=== PATIENT | male | born 1940 | race Caucasian/White ===

== ENCOUNTER → 2016-04-13 | Outpatient (CLI) | payer MEDICARE ==
[~2016-04-13] MED LIST: ALLO15TA PO; ASPI325T PO; ATOR1TAB21 PO; CARV25TA PO; FURO20TA2 PO; LEVO50TA5 PO; LOSA100T36 PO; MULT1TAB10 PO; SERT-141 PO; SPIR25TA2 PO
--- NOTE | 2016-04-13 18:28 | REP ---
LEFT HAND, FOUR VIEWS: HISTORY: Injury. There is no acute fracture or dislocation. There is narrowing of the radiocarpal joint space. Chondrocalcinosis is present. A small ossified density is present adjacent to the ulnar styloid process. This may represent an old avulsion fracture fragment, ligamentous or tendon calcification. There is narrowing of the first carpometacarpal, intermediate and distal interphalangeal joint spaces. IMPRESSION: Degenerative change as described above. Signed by Ben Rodriguez MD 04/13/2016 06:35 P
== END ==
LOC: M WUC 17:18
PROVIDERS: ATTEND Physician Assistant
DX: S60.222A Contusion of left hand, initial encounter (principal); X58.XXXA Exposure to other specified factors, initial encounter; Y92.89 Other specified places as the place of occurrence of the external cause; Y93.9 Activity, unspecified; Y99.9 Unspecified external cause status

== ENCOUNTER → 2016-10-24 | Outpatient (REF) | payer MEDICARE ==
[~2016-10-24] MED LIST changes: -SERT-141 PO; +SERT50TA PO
== END ==
LOC: M LAB REF 17:39
PROVIDERS: ATTEND Family Medicine
DX: M10.9 Gout, unspecified (principal)

== ENCOUNTER → 2016-11-09 | Outpatient (REF) | payer MEDICARE ==
[2016-11-09 18:49] LABS: FERRITIN 163 NG/ML (26-388); PERCENT SATURATION 17.2 % (19.7-50.0); TOTAL IRON BINDING CAPACITY 348 UG/DL (250-450)
[2016-11-09 18:50] LABS: FOLATE > 24.0 NG/ML (>5.4); VITAMIN B12 LEVEL 909 PG/ML (247-911)
== END ==
LOC: M LAB REF 17:28
PROVIDERS: ATTEND Internal Medicine Nephrology
DX: D50.9 Iron deficiency anemia, unspecified (principal)

== ENCOUNTER 2016-11-27 08:14 | Outpatient (CLI) | payer MEDICARE ==
[~2016-11-27] VITALS: Ht 175.3 cm; Wt 103.2 kg
[2016-11-27] MEDS ORDERED: IRON SUCROSE 25 MG in NS 50 ML IV ONE (09:00)
[2016-11-27] MEDS ORDERED: IRON SUCROSE 475 MG in NS 250 ML IV ONE (10:00)
== END 2016-11-27 13:30 | disposition home or self-care (01) ==
LOC: M INFU 08:14
PROVIDERS: ATTEND Internal Medicine Nephrology
DX: D50.9 Iron deficiency anemia, unspecified (principal); Z88.8 Allergy status to other drugs, medicaments and biological substances; Z79.899 Other long term (current) drug therapy; Z79.82 Long term (current) use of aspirin
CPT/HCPCS: 96365; J1756

== ENCOUNTER → 2017-01-10 | Outpatient (CLI) | payer MEDICARE ==
--- NOTE | 2017-01-10 15:03 | REP ---
Right knee series: Five views. History: Contusion. Pain after a fall. Findings: There is mild prepatellar soft-tissue swelling. No fracture is seen. There is nonarticular superior and inferior pole patellar spurring at the quadriceps tendon and patellar tendon insertion sites. Vascular calcification is noted. There are surgical clips in the posteromedial soft tissues of the calf. No fracture is seen. No joint space narrowing noted. Impression: Patellar spurring. Prepatellar swelling. No fracture evident. Signed by Butch López MD 01/10/2017 03:18 P
== END ==
LOC: M WUC 13:03
PROVIDERS: ATTEND Physician Assistant
DX: S80.01XA Contusion of right knee, initial encounter (principal); X58.XXXA Exposure to other specified factors, initial encounter; Y92.89 Other specified places as the place of occurrence of the external cause; Y93.89 Activity, other specified; Y99.8 Other external cause status; M25.761 Osteophyte, right knee

== ENCOUNTER 2017-03-17 12:30 | Emergency (ER) | payer MEDICARE | END 2017-03-17 15:46 | disposition home or self-care (01) | LOC: M ED 12:30 | DX: K59.00 Constipation, unspecified (principal); K64.4 Residual hemorrhoidal skin tags; E11.9 Type 2 diabetes mellitus without complications; I50.9 Heart failure, unspecified; I25.2 Old myocardial infarction; N18.6 End stage renal disease; Z79.899 Other long term (current) drug therapy; Z79.82 Long term (current) use of aspirin; Z79.890 Hormone replacement therapy; Z88.8 Allergy status to other drugs, medicaments and biological substances; Z87.891 Personal history of nicotine dependence | CPT/HCPCS: 74000 ==

== ENCOUNTER → 2017-04-26 | Outpatient (REF) | payer MEDICARE ==
[2017-04-26 20:36] LABS: FERRITIN 189 NG/ML (26-388); IRON (FE) 65 UG/DL (65-175); PERCENT SATURATION 20.8 % (19.7-50.0); TOTAL IRON BINDING CAPACITY 313 UG/DL (250-450)
== END ==
LOC: M LAB REF 18:41
DX: D50.9 Iron deficiency anemia, unspecified (principal)
CPT/HCPCS: 83550

== ENCOUNTER 2017-05-04 15:27 | Inpatient (IN) | payer MEDICARE ==
[2017-05-04 16:49] LABS: BASO % 0.6 % (0.0-1.0); EOS # 0.3 10^3/uL (0.0-0.50); EOS % 4.6 % (0.0-3.0); HEMATOCRIT 31.6 % (42.0-52.0); HEMOGLOBIN 10.5 g/dl (14.0-18.0); IMMATURE GRANULOCYTE % 0.2 % (0-3.0); LYMPH # 0.7 10^3/uL (1.5-4.5); LYMPH % 10.4 % (24.0-44.0); MEAN CORPUSCULAR HGB CONC 33.2 g/dl (32.0-36.5); MEAN CORPUSCULAR VOLUME 93.2 fl (80.0-96.0); MONO # 0.9 10^3/uL (0.0-0.8); MONO % 14.3 % (0.0-5.0); NEUTROPHILS # 4.4 10^3/uL (1.8-7.7); NEUTROPHILS % 69.9 % (36.0-66.0); PLATELET COUNT, AUTOMATED 192 10^3/uL (150-450); RED BLOOD COUNT 3.39 10^6/uL (4.30-6.10); WHITE BLOOD COUNT 6.4 10^3/uL (4.0-10.0)
[2017-05-04 17:16] LABS: ANION GAP 11 MEQ/L (8-16); BLOOD UREA NITROGEN 134 MG/DL (7-18); CALCIUM LEVEL 8.8 MG/DL (8.8-10.2); CARBON DIOXIDE LEVEL 28 MEQ/L (21-32); CHLORIDE LEVEL 101 MEQ/L (98-107); CREATININE FOR GFR 3.65 MG/DL (0.70-1.30); GLOMERULAR FILTRATION RATE 17.5 (>42); GLUCOSE, FASTING 109 MG/DL (70-100); POTASSIUM SERUM 3.8 MEQ/L (3.5-5.1); SODIUM LEVEL 140 MEQ/L (136-145)
[2017-05-04] MEDS ORDERED: ANUSOL HC CREAM 30GM PR (19:00)
[2017-05-04] MEDS: ASPIRIN 325 MG TAB PO (21:47)
[2017-05-04] MEDS: ATORVASTATIN 20 MG TAB PO (21:48)
[2017-05-04] MEDS: CARVedilol 3.125 MG TAB PO (21:48)
[2017-05-05 05:04] LABS: HEMATOCRIT 28.9 % (42.0-52.0); HEMOGLOBIN 9.6 g/dl (14.0-18.0); MEAN CORPUSCULAR HEMOGLOBIN 30.8 pg (27.0-33.0); MEAN CORPUSCULAR HGB CONC 33.2 g/dl (32.0-36.5); MEAN CORPUSCULAR VOLUME 92.6 fl (80.0-96.0); PLATELET COUNT, AUTOMATED 168 10^3/uL (150-450); RED BLOOD COUNT 3.12 10^6/uL (4.30-6.10); RED CELL DISTRIBUTION WIDTH 16.9 % (11.5-14.5)
[2017-05-05 05:21] LABS: ALBUMIN 3.3 GM/DL (3.2-5.2); ANION GAP 14 MEQ/L (8-16); BLOOD UREA NITROGEN 136 MG/DL (7-18); CALCIUM LEVEL 8.9 MG/DL (8.8-10.2); CARBON DIOXIDE LEVEL 27 MEQ/L (21-32); CHLORIDE LEVEL 100 MEQ/L (98-107); CREATININE FOR GFR 3.52 MG/DL (0.70-1.30); GLOMERULAR FILTRATION RATE 18.2 (>42); GLUCOSE, FASTING 116 MG/DL (70-100); MAGNESIUM LEVEL 2.9 MG/DL (1.8-2.4); PHOSPHORUS LEVEL 6.6 MG/DL (2.5-4.9); POTASSIUM SERUM 3.7 MEQ/L (3.5-5.1); SODIUM LEVEL 141 MEQ/L (136-145)
[2017-05-05 05:28] LABS: INR 1.54; PROTHROMBIN TIME 18.9 SECONDS (12.4-14.5)
[2017-05-05] MEDS: LEVOTHYROXINE 75MCG TABLET (0.075MG) PO (06:20)
[2017-05-05] MEDS: HEPARIN SOD (PORCINE) 5000 UNITS/ML VIAL SC ×3 (06:21→22:00)
[2017-05-05] MEDS: FEBUXOSTAT 40 MG TABLET (ULORIC) PO (08:54)
[2017-05-05] MEDS: TORSEMIDE 100 MG TAB PO (08:54)
[2017-05-05] MEDS: MULTIVITAMINS/MINERALS THERAP 1 TAB PO (08:55)
[2017-05-05] MEDS: SERTRALINE HCL 50 MG TAB PO (08:55)
[2017-05-05] MEDS: CARVedilol 3.125 MG TAB PO ×2 (08:55→21:07)
[2017-05-05] MEDS ORDERED: SODIUM CHLORIDE 0.9% NASAL GEL 15MG (AYR) (11:00)
[2017-05-05] MEDS: SODIUM CHLORIDE NASAL 0.65% SPRAY BTL (OCEAN) (13:47)
[2017-05-05] MEDS: FUROSEMIDE injection 250 MG in D5W 225 ML IV (14:42)
[2017-05-05] MEDS ORDERED: HEPARIN SOD (PORCINE) 5000 UNITS/ML VIAL As Ordered (15:13)
[2017-05-05] MEDS ORDERED: MIDAZOLAM INJ 2 MG/2 ML VIAL (J2250) As Ordered (16:44)
[2017-05-05] MEDS ORDERED: fentaNYL 100 MCG/2 ML INJECTION (J3010) As Ordered (16:44)
[2017-05-05] MEDS ORDERED: LIDOCAINE 2% INJ 100 MG/5 ML SDV (FOR ANES.) As Ordered (16:44)
[2017-05-05] MEDS ORDERED: PROPOFOL 200 MG/20 ML VIAL As Ordered (16:44)
[2017-05-05] MEDS: BUPIVACAINE HCL 0.5% 30 ML VIAL As Ordered (17:10)
[2017-05-05] MEDS: LIDOCAINE 1% MDV 20ML VIAL As Ordered (17:10)
[2017-05-05] MEDS ORDERED: ONDANSETRON 4MG/2ML VIAL (J2405) IV (17:45)
[2017-05-05 18:08] LABS: IRON (FE) 43 UG/DL (65-175); TOTAL IRON BINDING CAPACITY 330 UG/DL (250-450)
[2017-05-05] MEDS: POTASSIUM CHLORIDE 10 MEQ SR TABLET PO (18:47)
[2017-05-05] MEDS: ASPIRIN 325 MG TAB PO (21:06)
[2017-05-05] MEDS: ATORVASTATIN 20 MG TAB PO (21:07)
[2017-05-06 05:27] LABS: HEMATOCRIT 30.4 % (42.0-52.0); MEAN CORPUSCULAR HEMOGLOBIN 30.5 pg (27.0-33.0); MEAN CORPUSCULAR HGB CONC 32.9 g/dl (32.0-36.5); MEAN CORPUSCULAR VOLUME 92.7 fl (80.0-96.0); PLATELET COUNT, AUTOMATED 174 10^3/uL (150-450); RED BLOOD COUNT 3.28 10^6/uL (4.30-6.10); RED CELL DISTRIBUTION WIDTH 17.1 % (11.5-14.5); WHITE BLOOD COUNT 6.4 10^3/uL (4.0-10.0)
[2017-05-06 05:46] LABS: ALBUMIN 3.5 GM/DL (3.2-5.2); ANION GAP 11 MEQ/L (8-16); BLOOD UREA NITROGEN 129 MG/DL (7-18); CALCIUM LEVEL 8.9 MG/DL (8.8-10.2); CARBON DIOXIDE LEVEL 27 MEQ/L (21-32); CHLORIDE LEVEL 101 MEQ/L (98-107); CREATININE FOR GFR 3.43 MG/DL (0.70-1.30); GLOMERULAR FILTRATION RATE 18.8 (>42); GLUCOSE, FASTING 112 MG/DL (70-100); MAGNESIUM LEVEL 2.8 MG/DL (1.8-2.4); PHOSPHORUS LEVEL 6.5 MG/DL (2.5-4.9); POTASSIUM SERUM 3.8 MEQ/L (3.5-5.1); SODIUM LEVEL 139 MEQ/L (136-145)
[2017-05-06] MEDS: LEVOTHYROXINE 75MCG TABLET (0.075MG) PO (06:35)
[2017-05-06] MEDS: HEPARIN SOD (PORCINE) 5000 UNITS/ML VIAL SC ×3 (06:35→21:46)
[2017-05-06] MEDS ORDERED: HEPARIN SOD (PORCINE) 5000 UNITS/ML VIAL (09:45)
[2017-05-06] MEDS: MULTIVITAMINS/MINERALS THERAP 1 TAB PO (09:46)
[2017-05-06] MEDS: SERTRALINE HCL 50 MG TAB PO (09:46)
[2017-05-06] MEDS: FEBUXOSTAT 40 MG TABLET (ULORIC) PO (09:47)
[2017-05-06] MEDS: CARVedilol 3.125 MG TAB PO ×2 (09:47→21:46)
[2017-05-06] MEDS: FUROSEMIDE injection 250 MG in D5W 225 ML IV (13:24)
[2017-05-06] MEDS: ATORVASTATIN 20 MG TAB PO (21:45)
[2017-05-06] MEDS: ASPIRIN 325 MG TAB PO (21:45)
[2017-05-07 05:22] LABS: HEMOGLOBIN 9.9 g/dl (14.0-18.0); MEAN CORPUSCULAR HEMOGLOBIN 30.8 pg (27.0-33.0); MEAN CORPUSCULAR VOLUME 93.5 fl (80.0-96.0); PLATELET COUNT, AUTOMATED 179 10^3/uL (150-450); RED BLOOD COUNT 3.21 10^6/uL (4.30-6.10); RED CELL DISTRIBUTION WIDTH 17.2 % (11.5-14.5); WHITE BLOOD COUNT 6.7 10^3/uL (4.0-10.0)
[2017-05-07 05:36] LABS: ALBUMIN 3.4 GM/DL (3.2-5.2); ANION GAP 14 MEQ/L (8-16); BLOOD UREA NITROGEN 124 MG/DL (7-18); CALCIUM LEVEL 8.9 MG/DL (8.8-10.2); CARBON DIOXIDE LEVEL 25 MEQ/L (21-32); CHLORIDE LEVEL 102 MEQ/L (98-107); CREATININE FOR GFR 3.43 MG/DL (0.70-1.30); GLOMERULAR FILTRATION RATE 18.8 (>42); GLUCOSE, FASTING 127 MG/DL (70-100); MAGNESIUM LEVEL 2.9 MG/DL (1.8-2.4); PHOSPHORUS LEVEL 6.3 MG/DL (2.5-4.9); POTASSIUM SERUM 3.8 MEQ/L (3.5-5.1); SODIUM LEVEL 141 MEQ/L (136-145)
[2017-05-07] MEDS: FEBUXOSTAT 40 MG TABLET (ULORIC) PO (05:55)
[2017-05-07] MEDS: LEVOTHYROXINE 75MCG TABLET (0.075MG) PO (05:55)
[2017-05-07] MEDS: DOCUSATE SODIUM 100 MG CAP PO (05:55)
[2017-05-07] MEDS: SERTRALINE HCL 50 MG TAB PO (05:56)
[2017-05-07] MEDS: CARVedilol 3.125 MG TAB PO ×2 (05:56→21:20)
[2017-05-07] MEDS: MULTIVITAMINS/MINERALS THERAP 1 TAB PO (05:56)
[2017-05-07] MEDS: HEPARIN SOD (PORCINE) 5000 UNITS/ML VIAL SC ×3 (05:57→21:21)
[2017-05-07] MEDS: CALCITRIOL 0.25 MCG CAP (S0169) PO (08:45)
[2017-05-07] MEDS: HEPARIN 1,000 UNITS/ML 10ML VIAL (FOR RADIOLOGY& DIALYSIS ONLY) IV (11:30)
[2017-05-07 11:48] LABS: HEPATITIS B SURFACE ANTIBODY NEGATIVE (POSITIVE)
[2017-05-07 11:55] LABS: HEPATITIS B SURFACE ANTIGEN NEGATIVE (NEGATIVE)
[2017-05-07 11:56] LABS: HEPATITIS B SURFACE ANTIGEN NEGATIVE (NEGATIVE)
[2017-05-07 12:14] LABS: HEPATITIS B CORE ANTIBODY IGM NEGATIVE (NEGATIVE); HEPATITIS C VIRUS ABY INDEX 0.1 INDEX (<0.8)
[2017-05-07 12:15] LABS: HEPATITIS C VIRUS ABY INDEX 0.1 INDEX (<0.8)
[2017-05-07 12:16] LABS: HEPATITIS B CORE ANTIBODY IGM NEGATIVE (NEGATIVE)
[2017-05-07 12:17] LABS: HEPATITIS A ANTIBODY IGM NEGATIVE (NEGATIVE)
[2017-05-07] MEDS ORDERED: IRON SUCROSE 100MG 5ML VIAL (J1756 PER 1MG) IV (21:00)
[2017-05-07] MEDS: ASPIRIN 325 MG TAB PO (21:20)
[2017-05-07] MEDS: ATORVASTATIN 20 MG TAB PO (21:20)
[2017-05-07 23:23] LABS: ANION GAP 9 MEQ/L (8-16); BLOOD UREA NITROGEN 90 MG/DL (7-18); CARBON DIOXIDE LEVEL 27 MEQ/L (21-32); CHLORIDE LEVEL 104 MEQ/L (98-107); CREATININE FOR GFR 2.71 MG/DL (0.70-1.30); GLOMERULAR FILTRATION RATE 24.6 (>42); GLUCOSE, FASTING 106 MG/DL (70-100); POTASSIUM SERUM 3.8 MEQ/L (3.5-5.1); SODIUM LEVEL 140 MEQ/L (136-145)
[2017-05-08 01:35] LABS: MAGNESIUM LEVEL 2.5 MG/DL (1.8-2.4); PHOSPHORUS LEVEL 4.8 MG/DL (2.5-4.9)
[2017-05-08 05:53] LABS: HEMATOCRIT 29.6 % (42.0-52.0); HEMOGLOBIN 9.7 g/dl (14.0-18.0); MEAN CORPUSCULAR HEMOGLOBIN 30.5 pg (27.0-33.0); MEAN CORPUSCULAR HGB CONC 32.8 g/dl (32.0-36.5); MEAN CORPUSCULAR VOLUME 93.1 fl (80.0-96.0); PLATELET COUNT, AUTOMATED 154 10^3/uL (150-450); RED BLOOD COUNT 3.18 10^6/uL (4.30-6.10); RED CELL DISTRIBUTION WIDTH 17.1 % (11.5-14.5); WHITE BLOOD COUNT 5.6 10^3/uL (4.0-10.0)
[2017-05-08 06:16] LABS: ALBUMIN 3.3 GM/DL (3.2-5.2); ANION GAP 12 MEQ/L (8-16); BLOOD UREA NITROGEN 90 MG/DL (7-18); CALCIUM LEVEL 9.1 MG/DL (8.8-10.2); CARBON DIOXIDE LEVEL 27 MEQ/L (21-32); CHLORIDE LEVEL 101 MEQ/L (98-107); CREATININE FOR GFR 2.73 MG/DL (0.70-1.30); GLOMERULAR FILTRATION RATE 24.4 (>42); GLUCOSE, FASTING 98 MG/DL (70-100); MAGNESIUM LEVEL 2.6 MG/DL (1.8-2.4); PHOSPHORUS LEVEL 4.8 MG/DL (2.5-4.9); POTASSIUM SERUM 3.9 MEQ/L (3.5-5.1); SODIUM LEVEL 140 MEQ/L (136-145)
[2017-05-08] MEDS: FEBUXOSTAT 40 MG TABLET (ULORIC) PO (06:30)
[2017-05-08] MEDS: HEPARIN SOD (PORCINE) 5000 UNITS/ML VIAL SC ×3 (06:31→22:01)
[2017-05-08] MEDS: CARVedilol 3.125 MG TAB PO ×2 (06:31→20:47)
[2017-05-08] MEDS: LEVOTHYROXINE 75MCG TABLET (0.075MG) PO (06:31)
[2017-05-08] MEDS: MULTIVITAMINS/MINERALS THERAP 1 TAB PO (06:31)
[2017-05-08] MEDS: SERTRALINE HCL 50 MG TAB PO (06:31)
[2017-05-08] MEDS: CALCITRIOL 0.25 MCG CAP (S0169) PO (06:32)
[2017-05-08 08:07] LABS: HEPATITIS B CORE ANTIBODY IGG Negative (Negative)
[2017-05-08] MEDS: HEPARIN 1,000 UNITS/ML 10ML VIAL (FOR RADIOLOGY& DIALYSIS ONLY) IV (19:32)
[2017-05-08] MEDS: ASPIRIN 325 MG TAB PO (20:46)
[2017-05-08] MEDS: ATORVASTATIN 20 MG TAB PO (20:47)
[2017-05-09] MEDS: HEPARIN SOD (PORCINE) 5000 UNITS/ML VIAL SC (05:27)
[2017-05-09] MEDS: LEVOTHYROXINE 75MCG TABLET (0.075MG) PO (05:27)
[2017-05-09 05:28] LABS: HEMOGLOBIN 9.8 g/dl (14.0-18.0); MEAN CORPUSCULAR HEMOGLOBIN 30.4 pg (27.0-33.0); MEAN CORPUSCULAR HGB CONC 32.7 g/dl (32.0-36.5); MEAN CORPUSCULAR VOLUME 93.2 fl (80.0-96.0); PLATELET COUNT, AUTOMATED 160 10^3/uL (150-450); RED BLOOD COUNT 3.22 10^6/uL (4.30-6.10); RED CELL DISTRIBUTION WIDTH 17.4 % (11.5-14.5); WHITE BLOOD COUNT 7.7 10^3/uL (4.0-10.0)
[2017-05-09 05:53] LABS: ALBUMIN 3.3 GM/DL (3.2-5.2); ANION GAP 9 MEQ/L (8-16); BLOOD UREA NITROGEN 66 MG/DL (7-18); CALCIUM LEVEL 9.3 MG/DL (8.8-10.2); CARBON DIOXIDE LEVEL 27 MEQ/L (21-32); CHLORIDE LEVEL 103 MEQ/L (98-107); CREATININE FOR GFR 2.53 MG/DL (0.70-1.30); GLOMERULAR FILTRATION RATE 26.6 (>42); GLUCOSE, FASTING 116 MG/DL (70-100); MAGNESIUM LEVEL 2.7 MG/DL (1.8-2.4); PHOSPHORUS LEVEL 3.8 MG/DL (2.5-4.9); SODIUM LEVEL 139 MEQ/L (136-145)
[2017-05-09] MEDS: FEBUXOSTAT 40 MG TABLET (ULORIC) PO (09:23)
[2017-05-09] MEDS: MULTIVITAMINS/MINERALS THERAP 1 TAB PO (09:24)
[2017-05-09] MEDS: CALCITRIOL 0.25 MCG CAP (S0169) PO (09:25)
[2017-05-09] MEDS: SERTRALINE HCL 50 MG TAB PO (09:25)
[2017-05-09] MEDS: CARVedilol 3.125 MG TAB PO (09:25)
== END 2017-05-09 12:38 | disposition home or self-care (01) | DRG 291 ==
LOC: M PCU 05-05 17:30 → M ED 15:27 → M ED INP 19:30 → M PCU 21:31
PROC: 02HV33Z Insertion of Infusion Device into Superior Vena Cava, Percutaneous Approach (ICD-10-PCS; principal; 2017-05-05 16:00)
PROC: 0JH63XZ Insertion of Tunneled Vascular Access Device into Chest Subcutaneous Tissue and Fascia, Percutaneous Approach (ICD-10-PCS; 2017-05-05 16:00)
PROC: 5A1D70Z Performance of Urinary Filtration, Intermittent, Less than 6 Hours Per Day (ICD-10-PCS; 2017-05-05 16:34)
DX: I50.23 Acute on chronic systolic (congestive) heart failure (principal); N18.6 End stage renal disease; N25.81 Secondary hyperparathyroidism of renal origin; I48.91 Unspecified atrial fibrillation; G47.33 Obstructive sleep apnea (adult) (pediatric); I25.10 Atherosclerotic heart disease of native coronary artery without angina pectoris; E03.9 Hypothyroidism, unspecified; Z95.5 Presence of coronary angioplasty implant and graft; Z98.52 Vasectomy status; Z87.891 Personal history of nicotine dependence; Z95.810 Presence of automatic (implantable) cardiac defibrillator; Z79.899 Other long term (current) drug therapy; Z91.048 Other nonmedicinal substance allergy status; Z88.8 Allergy status to other drugs, medicaments and biological substances; I25.2 Old myocardial infarction

== ENCOUNTER → 2017-06-18 | Outpatient (CLI) | payer MEDICARE | LOC: M RAD 13:35 | DX: N18.6 End stage renal disease (principal); R31.9 Hematuria, unspecified | CPT/HCPCS: 74176 ==

== ENCOUNTER → 2017-06-29 | Outpatient (REF) | payer MEDICARE ==
[2017-06-29 17:52] LABS: INR 1.37; PROTHROMBIN TIME 17.2 SECONDS (12.4-14.5)
== END ==
LOC: M LAB REF 16:49
DX: I50.22 Chronic systolic (congestive) heart failure (principal); Z01.818 Encounter for other preprocedural examination; R18.8 Other ascites
CPT/HCPCS: 85610

== ENCOUNTER → 2017-07-02 | Outpatient (CLI) | payer MEDICARE ==
[2017-07-02 11:05] LABS: TYPE AND SCREEN 1
[2017-07-02 13:48] LABS: BF MONONUCLEAR CELL % 74.4 % (0-0); BF POLYMORPHONUCLEAR CELL % 25.6 % (0-0); RBC BODY FLUID 11 10^3/uL (<2); WBC BODY FLUID 441 /uL (0-10)
[2017-07-02 13:49] LABS: SOURCE, BODY FLUID ASCITES
[2017-07-02 13:50] LABS: APPEARANCE, BODY FLUID TURBID (CLEAR); ASCITES FL COLOR AMBER (COLORLESS); BF DIFF IF INDICATED? YES (NO)
[2017-07-02 14:40] LABS: SOURCE, BODY FLUID ALBUMIN ASCITES; SOURCE, BODY FLUID TOT PROTEIN ASCITES; TOTAL PROTEIN, BODY FLUID 3.9 G/DL (NOT ESTABLISHED)
== END ==
LOC: M RADPRO 10:56
DX: I50.22 Chronic systolic (congestive) heart failure (principal); Z99.2 Dependence on renal dialysis; R18.8 Other ascites; Z79.899 Other long term (current) drug therapy; Z88.8 Allergy status to other drugs, medicaments and biological substances; Z91.048 Other nonmedicinal substance allergy status
CPT/HCPCS: 49083

== ENCOUNTER 2017-07-05 11:34 | Day surgery (SDC) | payer MEDICARE ==
[2017-07-05 12:35] LABS: BEDSIDE GLUCOSE 84 MG/DL (83-110)
[2017-07-05] MEDS ORDERED: PROPOFOL 200 MG/20 ML VIAL As Ordered ×6 (12:38→15:15)
[2017-07-05] MEDS ORDERED: MIDAZOLAM INJ 2 MG/2 ML VIAL (J2250) As Ordered ×2 (12:40)
[2017-07-05] MEDS ORDERED: fentaNYL 100 MCG/2 ML INJECTION (J3010) As Ordered ×2 (12:40)
[2017-07-05 12:46] LABS: POTASSIUM SERUM 3.8 MEQ/L (3.5-5.1)
[2017-07-05] MEDS: NS 1,000 ML IV ×2 (13:01)
[2017-07-05] MEDS: ISOVUE-300 61% 50ML VIAL (Q9967) As Ordered ×2 (13:08)
[2017-07-05] MEDS ORDERED: PHENYLephrine HCL 500 MCG/5 ML (100MCG/ML) SYRINGE (J2370) As Ordered ×4 (14:00→14:39)
[2017-07-05] MEDS: BUPIVACAINE HCL 0.5% 30 ML VIAL As Ordered ×2 (14:05)
[2017-07-05] MEDS: LIDOCAINE 1% SDV INJ 30 ML VIAL As Ordered ×2 (14:05)
[2017-07-05] MEDS: HEPARIN SOD (PORCINE) 5000 UNITS/ML VIAL As Ordered ×2 (14:05)
[2017-07-05] MEDS ORDERED: PROPOFOL 500 MG/50 ML VIAL As Ordered ×2 (14:50)
[2017-07-05] MEDS ORDERED: ONDANSETRON 4MG/2ML VIAL (J2405) IV ×2 (16:15)
[2017-07-05] MEDS ORDERED: NS 1,000 ML IV ×2 (16:15)
[2017-07-05 16:31] LABS: BEDSIDE GLUCOSE 93 MG/DL (83-110)
== END 2017-07-05 17:00 | disposition home or self-care (01) ==
LOC: M SDC 17:00
DX: N18.6 End stage renal disease (principal); I25.10 Atherosclerotic heart disease of native coronary artery without angina pectoris; I48.91 Unspecified atrial fibrillation; G47.33 Obstructive sleep apnea (adult) (pediatric); E03.9 Hypothyroidism, unspecified; I50.32 Chronic diastolic (congestive) heart failure; E11.22 Type 2 diabetes mellitus with diabetic chronic kidney disease; C61 Malignant neoplasm of prostate; R94.31 Abnormal electrocardiogram [ECG] [EKG]; R07.9 Chest pain, unspecified; I25.2 Old myocardial infarction; E78.00 Pure hypercholesterolemia, unspecified; M10.9 Gout, unspecified; K59.00 Constipation, unspecified; D50.9 Iron deficiency anemia, unspecified; I95.9 Hypotension, unspecified; M12.9 Arthropathy, unspecified; F41.9 Anxiety disorder, unspecified; F32.9 Major depressive disorder, single episode, unspecified; R06.83 Snoring; R06.02 Shortness of breath; N40.0 Benign prostatic hyperplasia without lower urinary tract symptoms; Z88.8 Allergy status to other drugs, medicaments and biological substances; Z91.048 Other nonmedicinal substance allergy status; Z79.899 Other long term (current) drug therapy; Z79.82 Long term (current) use of aspirin; Z95.810 Presence of automatic (implantable) cardiac defibrillator; Z95.5 Presence of coronary angioplasty implant and graft; Z96.1 Presence of intraocular lens; Z87.891 Personal history of nicotine dependence
CPT/HCPCS: 36821

== ENCOUNTER → 2017-07-25 | Outpatient (CLI) | payer MEDICARE ==
[~2017-07-25] MED LIST changes: -ALLO15TA PO; -ASPI325T PO; -ATOR1TAB21 PO; -CARV25TA PO; -FURO20TA2 PO; +ISOVUE-300 61% 50ML VIAL (Q9967) As Ordered; -LEVO50TA5 PO; -LOSA100T36 PO; +MIDAZOLAM INJ 2 MG/2 ML VIAL (J2250) As Ordered; -MULT1TAB10 PO; -SERT50TA PO; -SPIR25TA2 PO; +fentaNYL 100 MCG/2 ML INJECTION (J3010) As Ordered
== END | disposition home or self-care (01) ==
LOC: M IRPRO 07:47
DX: T82.590A Other mechanical complication of surgically created arteriovenous fistula, initial encounter (principal); E11.22 Type 2 diabetes mellitus with diabetic chronic kidney disease; N18.6 End stage renal disease; Z99.2 Dependence on renal dialysis; I25.10 Atherosclerotic heart disease of native coronary artery without angina pectoris; I48.91 Unspecified atrial fibrillation; G47.33 Obstructive sleep apnea (adult) (pediatric); E03.9 Hypothyroidism, unspecified; I50.9 Heart failure, unspecified
CPT/HCPCS: 36901

== ENCOUNTER → 2017-08-10 | Outpatient (CLI) | payer MEDICARE ==
[2017-08-10 11:53] LABS: TYPE AND SCREEN 1
== END ==
LOC: M RADPRO 11:08
DX: R18.8 Other ascites (principal); I50.22 Chronic systolic (congestive) heart failure; Z99.2 Dependence on renal dialysis; Z95.0 Presence of cardiac pacemaker; Z95.5 Presence of coronary angioplasty implant and graft; Z95.1 Presence of aortocoronary bypass graft; Z88.8 Allergy status to other drugs, medicaments and biological substances; Z91.048 Other nonmedicinal substance allergy status; Z79.82 Long term (current) use of aspirin
CPT/HCPCS: 49083

== ENCOUNTER → 2017-08-27 | Outpatient (CLI) | payer MEDICARE ==
[2017-08-27 11:19] LABS: TYPE AND SCREEN 1
== END ==
LOC: M RADPRO 11:06
DX: R18.8 Other ascites (principal); Z99.2 Dependence on renal dialysis; I50.22 Chronic systolic (congestive) heart failure; Z95.1 Presence of aortocoronary bypass graft; Z95.0 Presence of cardiac pacemaker; Z95.5 Presence of coronary angioplasty implant and graft; Z88.8 Allergy status to other drugs, medicaments and biological substances; Z91.048 Other nonmedicinal substance allergy status; Z79.82 Long term (current) use of aspirin; Z79.899 Other long term (current) drug therapy
CPT/HCPCS: 49083

== ENCOUNTER → 2017-09-10 | Outpatient (CLI) | payer MEDICARE ==
[2017-09-10 09:12] LABS: TYPE AND SCREEN 1
== END ==
LOC: M RADPRO 13:09
DX: R18.8 Other ascites (principal); N18.6 End stage renal disease; I50.9 Heart failure, unspecified; Z95.5 Presence of coronary angioplasty implant and graft; Z95.1 Presence of aortocoronary bypass graft; Z99.2 Dependence on renal dialysis; Z88.8 Allergy status to other drugs, medicaments and biological substances; Z91.048 Other nonmedicinal substance allergy status; Z79.899 Other long term (current) drug therapy; Z79.82 Long term (current) use of aspirin
CPT/HCPCS: 49083

== ENCOUNTER → 2017-09-24 | Outpatient (CLI) | payer MEDICARE ==
[2017-09-24 12:39] LABS: TYPE AND SCREEN 1
== END ==
LOC: M RADPRO 12:13
DX: R18.8 Other ascites (principal); N18.6 End stage renal disease; I50.9 Heart failure, unspecified; Z95.5 Presence of coronary angioplasty implant and graft; Z99.2 Dependence on renal dialysis; Z95.810 Presence of automatic (implantable) cardiac defibrillator; Z95.1 Presence of aortocoronary bypass graft; Z88.8 Allergy status to other drugs, medicaments and biological substances; Z91.048 Other nonmedicinal substance allergy status; Z79.899 Other long term (current) drug therapy; Z79.82 Long term (current) use of aspirin
CPT/HCPCS: 49083

== ENCOUNTER → 2017-10-08 | Outpatient (CLI) | payer MEDICARE ==
[2017-10-08 09:57] LABS: TYPE AND SCREEN 1
== END ==
LOC: M RADPRO 11:22
DX: R18.8 Other ascites (principal); N18.6 End stage renal disease; I50.9 Heart failure, unspecified
CPT/HCPCS: 49083

== ENCOUNTER → 2017-10-19 | Outpatient (CLI) | payer MEDICARE ==
[~2017-10-19] MED LIST changes: -ISOVUE-300 61% 50ML VIAL (Q9967) As Ordered; +LIDOCAINE 1% MDV 20ML VIAL As Ordered; -MIDAZOLAM INJ 2 MG/2 ML VIAL (J2250) As Ordered; -fentaNYL 100 MCG/2 ML INJECTION (J3010) As Ordered
[2017-10-19 11:45] LABS: TYPE AND SCREEN 1
== END ==
LOC: M RADPRO 10:41
DX: R18.8 Other ascites (principal); N18.6 End stage renal disease; I50.9 Heart failure, unspecified; Z95.5 Presence of coronary angioplasty implant and graft; Z95.1 Presence of aortocoronary bypass graft; Z95.0 Presence of cardiac pacemaker; Z99.2 Dependence on renal dialysis; Z88.8 Allergy status to other drugs, medicaments and biological substances; Z91.048 Other nonmedicinal substance allergy status; Z79.82 Long term (current) use of aspirin; Z79.899 Other long term (current) drug therapy
CPT/HCPCS: 49083

== ENCOUNTER → 2017-10-29 | Outpatient (CLI) | payer MEDICARE ==
[~2017-10-29] MED LIST changes: +ISOVUE-300 61% 50ML VIAL (Q9967) As Ordered; -LIDOCAINE 1% MDV 20ML VIAL As Ordered; +MIDAZOLAM INJ 2 MG/2 ML VIAL (J2250) As Ordered; +fentaNYL 100 MCG/2 ML INJECTION (J3010) As Ordered
== END | disposition home or self-care (01) ==
LOC: M IRPRO 09:11
DX: T82.898A Other specified complication of vascular prosthetic devices, implants and grafts, initial encounter (principal); N18.6 End stage renal disease; Z99.2 Dependence on renal dialysis
CPT/HCPCS: 36901

== ENCOUNTER 2017-10-31 01:59 | Inpatient (IN) | payer MEDICARE ==
[2017-10-31 02:42] LABS: BASO # 0.1 10^3/uL (0.0-0.2); BASO % 0.4 % (0.0-1.0); EOS # 0.2 10^3/uL (0.0-0.50); EOS % 1.3 % (0.0-3.0); HEMATOCRIT 18.6 % (42.0-52.0); IMMATURE GRANULOCYTE % 1.8 % (0-3.0); LYMPH # 1.2 10^3/uL (1.5-4.5); LYMPH % 7.7 % (24.0-44.0); MEAN CORPUSCULAR HEMOGLOBIN 32.2 pg (27.0-33.0); MEAN CORPUSCULAR HGB CONC 31.7 g/dl (32.0-36.5); MEAN CORPUSCULAR VOLUME 101.6 fl (80.0-96.0); MONO # 1.2 10^3/uL (0.0-0.8); MONO % 7.4 % (0.0-5.0); NEUTROPHILS # 12.8 10^3/uL (1.8-7.7); NEUTROPHILS % 81.4 % (36.0-66.0); PLATELET COUNT, AUTOMATED 197 10^3/uL (150-450); RED BLOOD COUNT 1.83 10^6/uL (4.30-6.10); RED CELL DISTRIBUTION WIDTH 15.4 % (11.5-14.5); WHITE BLOOD COUNT 15.7 10^3/uL (4.0-10.0)
[2017-10-31 02:44] LABS: HEMOGLOBIN 5.9 g/dl (13.5-17.5)
[2017-10-31] MEDS: NS 500 ML IV (02:45)
[2017-10-31 02:52] LABS: ANION GAP 10 MEQ/L (8-16); BLOOD UREA NITROGEN 41 MG/DL (7-18); CALCIUM LEVEL 7.7 MG/DL (8.8-10.2); CARBON DIOXIDE LEVEL 28 MEQ/L (21-32); CHLORIDE LEVEL 104 MEQ/L (98-107); GLOMERULAR FILTRATION RATE 17.1 (>42); GLUCOSE, FASTING 176 MG/DL (70-100); POTASSIUM SERUM 4.5 MEQ/L (3.5-5.1); SODIUM LEVEL 142 MEQ/L (136-145)
[2017-10-31] MEDS ORDERED: EMLA CREAM 5GM (LIDOCAINE/PRILOCAINE) TOP (03:30)
[2017-10-31] MEDS ORDERED: ANUSOL HC CREAM 30GM TOP (03:30)
[2017-10-31 03:35] LABS: IMMEDIATE SPIN CROSSMATCH 1 2
[2017-10-31] MEDS: ACETAMINOPHEN TAB 650MG DOSE (2X325MG) PO (04:08)
[2017-10-31] MEDS: OCTREOTIDE ACETATE 1,200 MCG in NS 238.8 ML IV (05:00)
[2017-10-31] MEDS: PANTOPRAZOLE 40MG INJ (PROTONIX) (C9113) IV ×2 (05:00→16:42)
[2017-10-31] MEDS: LEVOTHYROXINE 75MCG TABLET (0.075MG) PO (05:14)
[2017-10-31] MEDS: CALCIUM CARBONATE 500 MG CHEW U/D PO (05:36)
[2017-10-31] MEDS: MIDODRINE 5 MG TAB PO ×3 (08:00→20:11)
[2017-10-31] MEDS: EZETIMIBE 10 MG TAB (ZETIA) PO (08:00)
[2017-10-31] MEDS: SERTRALINE HCL 50 MG TAB PO (08:00)
[2017-10-31] MEDS: traMADol 50 MG TAB PO (08:46)
[2017-10-31] MEDS: FEBUXOSTAT 40 MG TABLET (ULORIC) PO (08:47)
[2017-10-31 12:23] LABS: HEMATOCRIT 22.9 % (42.0-52.0); HEMOGLOBIN 7.7 g/dl (13.5-17.5)
[2017-10-31] MEDS ORDERED: CISATRACURIUM 2MG/ML 5ML VIAL As Ordered (13:18)
[2017-10-31] MEDS ORDERED: fentaNYL 100 MCG/2 ML INJECTION (J3010) As Ordered (13:21)
[2017-10-31] MEDS ORDERED: MIDAZOLAM INJ 2 MG/2 ML VIAL (J2250) As Ordered (13:21)
[2017-10-31] MEDS ORDERED: PROPOFOL 200 MG/20 ML VIAL As Ordered (13:21)
[2017-10-31] MEDS ORDERED: LIDOCAINE 2% INJ 100 MG/5 ML SDV (FOR ANES.) As Ordered (13:21)
[2017-10-31] MEDS ORDERED: PHENYLephrine HCL 500 MCG/5 ML (100MCG/ML) SYRINGE (J2370) As Ordered (13:22)
[2017-10-31] MEDS ORDERED: ONDANSETRON 4MG/2ML VIAL (J2405) IV (14:00)
[2017-10-31 14:55] LABS: IMMEDIATE SPIN CROSSMATCH 1 1
[2017-10-31] MEDS: (RENVELA) SEVELAMER **CARBONate** 800 MG TAB PO (18:29)
[2017-10-31 19:11] LABS: HEMATOCRIT 27.6 % (42.0-52.0); HEMOGLOBIN 9.3 g/dl (13.5-17.5)
[2017-10-31 19:29] LABS: MAGNESIUM LEVEL 2.1 MG/DL (1.8-2.4)
[2017-10-31] MEDS: RAMELTEON 8 MG TAB (ROZEREM) PO (21:35)
[2017-11-01 01:08] LABS: HEMATOCRIT 26.8 % (42.0-52.0); HEMOGLOBIN 9.1 g/dl (13.5-17.5)
[2017-11-01] MEDS: PANTOPRAZOLE 40MG INJ (PROTONIX) (C9113) IV ×2 (05:12→16:48)
[2017-11-01] MEDS: LEVOTHYROXINE 75MCG TABLET (0.075MG) PO (05:12)
[2017-11-01 07:25] LABS: HEMATOCRIT 25.1 % (42.0-52.0); HEMOGLOBIN 8.7 g/dl (13.5-17.5); MEAN CORPUSCULAR HEMOGLOBIN 32.6 pg (27.0-33.0); MEAN CORPUSCULAR HGB CONC 34.7 g/dl (32.0-36.5); PLATELET COUNT, AUTOMATED 230 10^3/uL (150-450); RED BLOOD COUNT 2.67 10^6/uL (4.30-6.10); RED CELL DISTRIBUTION WIDTH 16.5 % (11.5-14.5)
[2017-11-01 07:30] LABS: POS COUNT POS FLAG
[2017-11-01 07:57] LABS: ANION GAP 13 MEQ/L (8-16); BLOOD UREA NITROGEN 65 MG/DL (7-18); CARBON DIOXIDE LEVEL 23 MEQ/L (21-32); CHLORIDE LEVEL 102 MEQ/L (98-107); GLUCOSE, FASTING 157 MG/DL (70-100); MAGNESIUM LEVEL 2.1 MG/DL (1.8-2.4); SODIUM LEVEL 138 MEQ/L (136-145)
[2017-11-01 08:14] LABS: POTASSIUM SERUM 5.3 MEQ/L (3.5-5.1)
[2017-11-01] MEDS: MIDODRINE 5 MG TAB PO ×3 (09:53→21:27)
[2017-11-01] MEDS: EZETIMIBE 10 MG TAB (ZETIA) PO (09:53)
[2017-11-01] MEDS: SERTRALINE HCL 50 MG TAB PO (09:54)
[2017-11-01] MEDS: FEBUXOSTAT 40 MG TABLET (ULORIC) PO (09:54)
[2017-11-01 16:04] LABS: BASO % 0.2 % (0.0-1.0); EOS # 0.1 10^3/uL (0.0-0.50); EOS % 0.3 % (0.0-3.0); HEMOGLOBIN 8.9 g/dl (13.5-17.5); IMMATURE GRANULOCYTE % 0.9 % (0-3.0); LYMPH # 0.8 10^3/uL (1.5-4.5); MEAN CORPUSCULAR HEMOGLOBIN 32.2 pg (27.0-33.0); MEAN CORPUSCULAR HGB CONC 34.2 g/dl (32.0-36.5); MEAN CORPUSCULAR VOLUME 94.2 fl (80.0-96.0); MONO # 1.8 10^3/uL (0.0-0.8); MONO % 6.7 % (0.0-5.0); NEUTROPHILS # 23.5 10^3/uL (1.8-7.7); NEUTROPHILS % 88.9 % (36.0-66.0); PLATELET COUNT, AUTOMATED 227 10^3/uL (150-450); RED BLOOD COUNT 2.76 10^6/uL (4.30-6.10); RED CELL DISTRIBUTION WIDTH 16.3 % (11.5-14.5); WHITE BLOOD COUNT 26.4 10^3/uL (4.0-10.0)
[2017-11-01] MEDS: (RENVELA) SEVELAMER **CARBONate** 800 MG TAB PO (16:48)
[2017-11-01] MEDS ORDERED: GLUCAGON FOR INJ 1 MG VIAL (J1610) SC (17:00)
[2017-11-01] MEDS ORDERED: DEXTROSE 50% 50 ML SYRINGE IV (17:00)
[2017-11-01] MEDS ORDERED: GLUCOSE 4 GM CHEW TABLET PO (17:00)
[2017-11-01 17:05] LABS: BEDSIDE GLUCOSE 142 MG/DL (83-110)
[2017-11-01] MEDS: HumaLOG INSULIN (NovoLOG) PER UNIT SC ×2 (17:14→21:00)
[2017-11-01 21:19] LABS: BEDSIDE GLUCOSE 145 MG/DL (83-110)
[2017-11-01] MEDS: RAMELTEON 8 MG TAB (ROZEREM) PO (21:27)
[2017-11-02 00:59] LABS: HEMATOCRIT 25.2 % (42.0-52.0); HEMOGLOBIN 8.4 g/dl (13.5-17.5)
[2017-11-02] MEDS: PANTOPRAZOLE 40MG INJ (PROTONIX) (C9113) IV ×2 (05:00→16:13)
[2017-11-02 05:04] LABS: HEMATOCRIT 25.3 % (42.0-52.0); HEMOGLOBIN 8.4 g/dl (13.5-17.5); MEAN CORPUSCULAR HEMOGLOBIN 32.4 pg (27.0-33.0); MEAN CORPUSCULAR HGB CONC 33.2 g/dl (32.0-36.5); MEAN CORPUSCULAR VOLUME 97.7 fl (80.0-96.0); PLATELET COUNT, AUTOMATED 237 10^3/uL (150-450); RED BLOOD COUNT 2.59 10^6/uL (4.30-6.10); RED CELL DISTRIBUTION WIDTH 16.5 % (11.5-14.5); WHITE BLOOD COUNT 17.9 10^3/uL (4.0-10.0)
[2017-11-02 05:22] LABS: ESTIMATED AVERAGE GLUCOSE 100 MG/DL (60-110); HEMOGLOBIN A1c 5.1 %
[2017-11-02 05:30] LABS: ANION GAP 11 MEQ/L (8-16); BLOOD UREA NITROGEN 46 MG/DL (7-18); CALCIUM LEVEL 7.9 MG/DL (8.8-10.2); CARBON DIOXIDE LEVEL 27 MEQ/L (21-32); CHLORIDE LEVEL 101 MEQ/L (98-107); CREATININE FOR GFR 3.64 MG/DL (0.70-1.30); GLOMERULAR FILTRATION RATE 17.5 (>42); GLUCOSE, FASTING 124 MG/DL (70-100); MAGNESIUM LEVEL 2.1 MG/DL (1.8-2.4); POTASSIUM SERUM 4.6 MEQ/L (3.5-5.1); SODIUM LEVEL 139 MEQ/L (136-145)
[2017-11-02] MEDS: LEVOTHYROXINE 75MCG TABLET (0.075MG) PO (06:00)
[2017-11-02] MEDS: HumaLOG INSULIN (NovoLOG) PER UNIT SC ×5 (07:30→21:00)
[2017-11-02] MEDS: SERTRALINE HCL 50 MG TAB PO (09:26)
[2017-11-02] MEDS: EZETIMIBE 10 MG TAB (ZETIA) PO (09:26)
[2017-11-02] MEDS: FEBUXOSTAT 40 MG TABLET (ULORIC) PO (09:26)
[2017-11-02] MEDS: MIDODRINE 5 MG TAB PO ×3 (09:26→22:01)
[2017-11-02 13:12] LABS: TYPE AND SCREEN 1
[2017-11-02] MEDS: (RENVELA) SEVELAMER **CARBONate** 800 MG TAB PO (17:33)
[2017-11-02 21:59] LABS: BEDSIDE GLUCOSE 121 MG/DL (83-110)
[2017-11-02] MEDS: RAMELTEON 8 MG TAB (ROZEREM) PO (22:02)
[2017-11-03 05:11] LABS: HEMATOCRIT 25.4 % (42.0-52.0); HEMOGLOBIN 8.2 g/dl (13.5-17.5); MEAN CORPUSCULAR HEMOGLOBIN 31.9 pg (27.0-33.0); MEAN CORPUSCULAR HGB CONC 32.3 g/dl (32.0-36.5); MEAN CORPUSCULAR VOLUME 98.8 fl (80.0-96.0); PLATELET COUNT, AUTOMATED 243 10^3/uL (150-450); RED BLOOD COUNT 2.57 10^6/uL (4.30-6.10); RED CELL DISTRIBUTION WIDTH 17.7 % (11.5-14.5); WHITE BLOOD COUNT 10.6 10^3/uL (4.0-10.0)
[2017-11-03 05:24] LABS: ANION GAP 9 MEQ/L (8-16); BLOOD UREA NITROGEN 58 MG/DL (7-18); CALCIUM LEVEL 7.8 MG/DL (8.8-10.2); CARBON DIOXIDE LEVEL 26 MEQ/L (21-32); CHLORIDE LEVEL 99 MEQ/L (98-107); CREATININE FOR GFR 4.57 MG/DL (0.70-1.30); GLOMERULAR FILTRATION RATE 13.4 (>42); GLUCOSE, FASTING 113 MG/DL (70-100); MAGNESIUM LEVEL 2.1 MG/DL (1.8-2.4); POTASSIUM SERUM 4.8 MEQ/L (3.5-5.1); SODIUM LEVEL 134 MEQ/L (136-145)
[2017-11-03] MEDS: LEVOTHYROXINE 75MCG TABLET (0.075MG) PO (05:53)
[2017-11-03] MEDS: PANTOPRAZOLE 40MG INJ (PROTONIX) (C9113) IV ×2 (05:53→16:01)
[2017-11-03] MEDS: HumaLOG INSULIN (NovoLOG) PER UNIT SC ×4 (07:30→20:42)
[2017-11-03] MEDS: MIDODRINE 5 MG TAB PO ×3 (09:17→20:44)
[2017-11-03] MEDS: EZETIMIBE 10 MG TAB (ZETIA) PO (09:17)
[2017-11-03] MEDS: SERTRALINE HCL 50 MG TAB PO (09:17)
[2017-11-03] MEDS: FEBUXOSTAT 40 MG TABLET (ULORIC) PO (09:17)
[2017-11-03] MEDS ORDERED: DARBEPOETIN 100 MCG/0.5 ML *DIALYSIS* SYRINGE (J0882) IV (13:45)
[2017-11-03] MEDS: (RENVELA) SEVELAMER **CARBONate** 800 MG TAB PO (17:19)
[2017-11-03 20:43] LABS: BEDSIDE GLUCOSE 113 MG/DL (83-110)
[2017-11-03] MEDS: RAMELTEON 8 MG TAB (ROZEREM) PO (20:44)
[2017-11-04 04:55] LABS: HEMATOCRIT 26.9 % (42.0-52.0); HEMOGLOBIN 8.7 g/dl (13.5-17.5); MEAN CORPUSCULAR HEMOGLOBIN 31.9 pg (27.0-33.0); MEAN CORPUSCULAR HGB CONC 32.3 g/dl (32.0-36.5); MEAN CORPUSCULAR VOLUME 98.5 fl (80.0-96.0); PLATELET COUNT, AUTOMATED 265 10^3/uL (150-450); RED BLOOD COUNT 2.73 10^6/uL (4.30-6.10); RED CELL DISTRIBUTION WIDTH 17.5 % (11.5-14.5); WHITE BLOOD COUNT 7.5 10^3/uL (4.0-10.0)
[2017-11-04 05:24] LABS: ANION GAP 8 MEQ/L (8-16); BLOOD UREA NITROGEN 39 MG/DL (7-18); CALCIUM LEVEL 7.5 MG/DL (8.8-10.2); CARBON DIOXIDE LEVEL 29 MEQ/L (21-32); CHLORIDE LEVEL 99 MEQ/L (98-107); CREATININE FOR GFR 3.72 MG/DL (0.70-1.30); GLUCOSE, FASTING 92 MG/DL (70-100); MAGNESIUM LEVEL 1.9 MG/DL (1.8-2.4); POTASSIUM SERUM 4.1 MEQ/L (3.5-5.1); SODIUM LEVEL 136 MEQ/L (136-145)
[2017-11-04] MEDS: PANTOPRAZOLE 40MG INJ (PROTONIX) (C9113) IV (06:03)
[2017-11-04] MEDS: LEVOTHYROXINE 75MCG TABLET (0.075MG) PO (06:04)
[2017-11-04] MEDS: HumaLOG INSULIN (NovoLOG) PER UNIT SC ×2 (07:30→11:59)
[2017-11-04] MEDS: MIDODRINE 5 MG TAB PO (09:01)
[2017-11-04] MEDS: FEBUXOSTAT 40 MG TABLET (ULORIC) PO (09:01)
[2017-11-04] MEDS: VITAMIN D 50,000 UNITS CAPSULE (ERGOCALCIFEROL 1.25MG) PO (09:01)
[2017-11-04] MEDS: SERTRALINE HCL 50 MG TAB PO (09:01)
[2017-11-04] MEDS: EZETIMIBE 10 MG TAB (ZETIA) PO (09:01)
[2017-11-04 11:40] LABS: BEDSIDE GLUCOSE 120 MG/DL (83-110)
[2017-11-04] MEDS: PREVNAR 13 VACCINE SYRINGE (CPT CODE:90670) IM (12:00)
== END 2017-11-04 12:50 | disposition home or self-care (01) | DRG 377 ==
LOC: M ED 01:59 → M ED INP 03:29 → M ICU 04:41
PROC: 0DB67ZX Excision of Stomach, Via Natural or Artificial Opening, Diagnostic (ICD-10-PCS; principal; 2017-10-31 12:30)
PROC: 0W3P8ZZ Control Bleeding in Gastrointestinal Tract, Via Natural or Artificial Opening Endoscopic (ICD-10-PCS; 2017-10-31 12:30)
PROC: 0W9G3ZZ Drainage of Peritoneal Cavity, Percutaneous Approach (ICD-10-PCS; 2017-10-31 13:02)
PROC: 5A1D70Z Performance of Urinary Filtration, Intermittent, Less than 6 Hours Per Day (ICD-10-PCS; 2017-10-31 13:02)
PROC: 30233N1 Transfusion of Nonautologous Red Blood Cells into Peripheral Vein, Percutaneous Approach (ICD-10-PCS; 2017-10-31 13:02)
PROC: 30233J1 Transfusion of Nonautologous Serum Albumin into Peripheral Vein, Percutaneous Approach (ICD-10-PCS; 2017-10-31 13:02)
DX: K25.4 Chronic or unspecified gastric ulcer with hemorrhage (principal); N18.6 End stage renal disease; I50.22 Chronic systolic (congestive) heart failure; R18.8 Other ascites; D62 Acute posthemorrhagic anemia; K31.811 Angiodysplasia of stomach and duodenum with bleeding; K74.60 Unspecified cirrhosis of liver; I25.10 Atherosclerotic heart disease of native coronary artery without angina pectoris; I48.0 Paroxysmal atrial fibrillation; M10.9 Gout, unspecified; I95.9 Hypotension, unspecified; G47.33 Obstructive sleep apnea (adult) (pediatric); E03.9 Hypothyroidism, unspecified; E11.22 Type 2 diabetes mellitus with diabetic chronic kidney disease; Z98.52 Vasectomy status; Z99.2 Dependence on renal dialysis; Z95.828 Presence of other vascular implants and grafts; Z95.5 Presence of coronary angioplasty implant and graft; Z87.891 Personal history of nicotine dependence; Z91.048 Other nonmedicinal substance allergy status; Z88.8 Allergy status to other drugs, medicaments and biological substances; Z79.82 Long term (current) use of aspirin; Z79.899 Other long term (current) drug therapy; I25.2 Old myocardial infarction

== ENCOUNTER 2017-11-10 10:38 | Inpatient (IN) | payer MEDICARE ==
[2017-11-10 12:07] LABS: BASO % 0.4 % (0.0-1.0); EOS # 0.2 10^3/uL (0.0-0.50); EOS % 1.6 % (0.0-3.0); HEMOGLOBIN 8.3 g/dl (13.5-17.5); IMMATURE GRANULOCYTE % 1.3 % (0-3.0); LYMPH # 0.9 10^3/uL (1.5-4.5); LYMPH % 7.9 % (24.0-44.0); MEAN CORPUSCULAR HEMOGLOBIN 31.3 pg (27.0-33.0); MEAN CORPUSCULAR HGB CONC 30.7 g/dl (32.0-36.5); MEAN CORPUSCULAR VOLUME 101.9 fl (80.0-96.0); MONO # 1.6 10^3/uL (0.0-0.8); MONO % 14.4 % (0.0-5.0); NEUTROPHILS # 8.2 10^3/uL (1.8-7.7); NEUTROPHILS % 74.4 % (36.0-66.0); PLATELET COUNT, AUTOMATED 412 10^3/uL (150-450); RED BLOOD COUNT 2.65 10^6/uL (4.30-6.10); RED CELL DISTRIBUTION WIDTH 17.5 % (11.5-14.5); WHITE BLOOD COUNT 11.1 10^3/uL (4.0-10.0)
[2017-11-10 12:56] LABS: ANION GAP 11 MEQ/L (8-16); BLOOD UREA NITROGEN 36 MG/DL (7-18); CALCIUM LEVEL 7.3 MG/DL (8.8-10.2); CARBON DIOXIDE LEVEL 26 MEQ/L (21-32); CHLORIDE LEVEL 104 MEQ/L (98-107); CREATININE FOR GFR 4.34 MG/DL (0.70-1.30); GLOMERULAR FILTRATION RATE 14.3 (>42); GLUCOSE, FASTING 122 MG/DL (70-100); POTASSIUM SERUM 3.7 MEQ/L (3.5-5.1); SODIUM LEVEL 141 MEQ/L (136-145)
[2017-11-10] MEDS ORDERED: ANUSOL HC 25MG SUPP PR (15:30)
[2017-11-10] MEDS ORDERED: ANUSOL HC CREAM 30GM PR (15:30)
[2017-11-10] MEDS ORDERED: METAMUCIL (PSYLLIUM) PACKET PO (15:30)
[2017-11-10] MEDS: (RENVELA) SEVELAMER **CARBONate** 800 MG TAB PO (17:37)
[2017-11-10 18:17] LABS: IMMEDIATE SPIN CROSSMATCH 1 1
[2017-11-10] MEDS: PANTOPRAZOLE 40MG TAB (PROTONIX) PO (20:39)
[2017-11-10] MEDS: MIDODRINE 5 MG TAB PO (20:39)
[2017-11-10] MEDS: ASPIRIN 325 MG TAB PO (20:39)
[2017-11-10] MEDS: EZETIMIBE 10 MG TAB (ZETIA) PO (20:39)
[2017-11-11 05:19] LABS: HEMATOCRIT 26.2 % (42.0-52.0); HEMOGLOBIN 8.3 g/dl (13.5-17.5); MEAN CORPUSCULAR HEMOGLOBIN 31.3 pg (27.0-33.0); MEAN CORPUSCULAR HGB CONC 31.7 g/dl (32.0-36.5); MEAN CORPUSCULAR VOLUME 98.9 fl (80.0-96.0); PLATELET COUNT, AUTOMATED 363 10^3/uL (150-450); RED BLOOD COUNT 2.65 10^6/uL (4.30-6.10); WHITE BLOOD COUNT 10.4 10^3/uL (4.0-10.0)
[2017-11-11 05:35] LABS: ALBUMIN 1.7 GM/DL (3.2-5.2); ANION GAP 12 MEQ/L (8-16); BLOOD UREA NITROGEN 41 MG/DL (7-18); CALCIUM LEVEL 7.4 MG/DL (8.8-10.2); CARBON DIOXIDE LEVEL 24 MEQ/L (21-32); CHLORIDE LEVEL 102 MEQ/L (98-107); CREATININE FOR GFR 4.91 MG/DL (0.70-1.30); GLOMERULAR FILTRATION RATE 12.4 (>42); GLUCOSE, FASTING 111 MG/DL (70-100); PHOSPHORUS LEVEL 4.2 MG/DL (2.5-4.9); POTASSIUM SERUM 3.7 MEQ/L (3.5-5.1); SODIUM LEVEL 138 MEQ/L (136-145)
[2017-11-11] MEDS: LEVOTHYROXINE 75MCG TABLET (0.075MG) PO (05:58)
[2017-11-11] MEDS: MIDODRINE 5 MG TAB PO ×3 (09:02→20:50)
[2017-11-11] MEDS: SERTRALINE HCL 50 MG TAB PO (09:02)
[2017-11-11] MEDS: VITAMIN D 50,000 UNITS CAPSULE (ERGOCALCIFEROL 1.25MG) PO (09:02)
[2017-11-11] MEDS: FEBUXOSTAT 40 MG TABLET (ULORIC) PO (09:02)
[2017-11-11] MEDS: PANTOPRAZOLE 40MG TAB (PROTONIX) PO ×2 (09:02→20:50)
[2017-11-11 12:20] LABS: HEMATOCRIT 25.6 % (42.0-52.0); HEMOGLOBIN 8.2 g/dl (13.5-17.5); MEAN CORPUSCULAR HEMOGLOBIN 31.3 pg (27.0-33.0); MEAN CORPUSCULAR VOLUME 97.7 fl (80.0-96.0); PLATELET COUNT, AUTOMATED 330 10^3/uL (150-450); RED BLOOD COUNT 2.62 10^6/uL (4.30-6.10); WHITE BLOOD COUNT 12.6 10^3/uL (4.0-10.0)
[2017-11-11] MEDS: (RENVELA) SEVELAMER **CARBONate** 800 MG TAB PO (17:40)
[2017-11-11] MEDS: CARVedilol 3.125 MG TAB PO ×2 (17:41→20:51)
[2017-11-11 17:50] LABS: ANION GAP 12 MEQ/L (8-16); BLOOD UREA NITROGEN 45 MG/DL (7-18); CALCIUM LEVEL 7.1 MG/DL (8.8-10.2); CARBON DIOXIDE LEVEL 25 MEQ/L (21-32); CHLORIDE LEVEL 102 MEQ/L (98-107); CPK CREATINE PHOSPHOKINASE 28 U/L (39-308); CREATININE FOR GFR 5.29 MG/DL (0.70-1.30); GLOMERULAR FILTRATION RATE 11.3 (>42); GLUCOSE, FASTING 121 MG/DL (70-100); MAGNESIUM LEVEL 1.9 MG/DL (1.8-2.4); SODIUM LEVEL 139 MEQ/L (136-145); TROPONIN I 0.26 NG/ML (< 0.10)
[2017-11-11 17:51] LABS: MB/CK RELATIVE INDEX 14.28 (< OR =4)
[2017-11-11 19:07] LABS: HEMATOCRIT 22.7 % (42.0-52.0); HEMOGLOBIN 7.6 g/dl (13.5-17.5); MEAN CORPUSCULAR HEMOGLOBIN 31.3 pg (27.0-33.0); MEAN CORPUSCULAR HGB CONC 33.5 g/dl (32.0-36.5); MEAN CORPUSCULAR VOLUME 93.4 fl (80.0-96.0); PLATELET COUNT, AUTOMATED 366 10^3/uL (150-450); RED BLOOD COUNT 2.43 10^6/uL (4.30-6.10); RED CELL DISTRIBUTION WIDTH 17.6 % (11.5-14.5); WHITE BLOOD COUNT 11.4 10^3/uL (4.0-10.0)
[2017-11-11] MEDS: ASPIRIN 325 MG TAB PO (20:50)
[2017-11-11] MEDS: EZETIMIBE 10 MG TAB (ZETIA) PO (20:50)
[2017-11-11] MEDS ORDERED: SLF 3 ML SYR IV (22:00)
[2017-11-11] MEDS: SLF 3 ML SYR IV (22:00)
[2017-11-11 23:05] LABS: HEMATOCRIT 25.1 % (42.0-52.0); MEAN CORPUSCULAR HEMOGLOBIN 31.4 pg (27.0-33.0); MEAN CORPUSCULAR HGB CONC 31.9 g/dl (32.0-36.5); MEAN CORPUSCULAR VOLUME 98.4 fl (80.0-96.0); PLATELET COUNT, AUTOMATED 390 10^3/uL (150-450); RED BLOOD COUNT 2.55 10^6/uL (4.30-6.10); RED CELL DISTRIBUTION WIDTH 17.9 % (11.5-14.5); WHITE BLOOD COUNT 13.1 10^3/uL (4.0-10.0)
[2017-11-11 23:37] LABS: CK-MB VALUE MASS 3.6 NG/ML (<3.6); CPK CREATINE PHOSPHOKINASE 24 U/L (39-308); TROPONIN I 0.26 NG/ML (< 0.10)
[2017-11-12] MEDS: ACETAMINOPHEN TAB 650MG DOSE (2X325MG) PO (00:12)
[2017-11-12 05:24] LABS: HEMATOCRIT 22.1 % (42.0-52.0); HEMOGLOBIN 7.1 g/dl (13.5-17.5); MEAN CORPUSCULAR HEMOGLOBIN 31.6 pg (27.0-33.0); MEAN CORPUSCULAR HGB CONC 32.1 g/dl (32.0-36.5); MEAN CORPUSCULAR VOLUME 98.2 fl (80.0-96.0); PLATELET COUNT, AUTOMATED 319 10^3/uL (150-450); RED BLOOD COUNT 2.25 10^6/uL (4.30-6.10); RED CELL DISTRIBUTION WIDTH 17.7 % (11.5-14.5); WHITE BLOOD COUNT 11.1 10^3/uL (4.0-10.0)
[2017-11-12 05:40] LABS: ALBUMIN 1.6 GM/DL (3.2-5.2); ANION GAP 14 MEQ/L (8-16); BLOOD UREA NITROGEN 51 MG/DL (7-18); CALCIUM LEVEL 7.1 MG/DL (8.8-10.2); CARBON DIOXIDE LEVEL 22 MEQ/L (21-32); CHLORIDE LEVEL 102 MEQ/L (98-107); CPK CREATINE PHOSPHOKINASE 25 U/L (39-308); CREATININE FOR GFR 5.72 MG/DL (0.70-1.30); GLOMERULAR FILTRATION RATE 10.4 (>42); GLUCOSE, FASTING 114 MG/DL (70-100); SODIUM LEVEL 138 MEQ/L (136-145); TROPONIN I 0.24 NG/ML (< 0.10)
[2017-11-12 05:41] LABS: CK-MB VALUE MASS 3.6 NG/ML (<3.6)
[2017-11-12] MEDS: FEBUXOSTAT 40 MG TABLET (ULORIC) PO (05:52)
[2017-11-12] MEDS: PANTOPRAZOLE 40MG TAB (PROTONIX) PO ×2 (05:52→22:05)
[2017-11-12] MEDS: SERTRALINE HCL 50 MG TAB PO (05:52)
[2017-11-12] MEDS: LEVOTHYROXINE 75MCG TABLET (0.075MG) PO (05:52)
[2017-11-12] MEDS: MIDODRINE 5 MG TAB PO ×3 (05:52→22:04)
[2017-11-12] MEDS: SLF 3 ML SYR IV ×3 (05:53→22:00)
[2017-11-12 08:46] LABS: IMMEDIATE SPIN CROSSMATCH 1 1
[2017-11-12] MEDS: CARVedilol 3.125 MG TAB PO (08:52)
[2017-11-12] MEDS: (RENVELA) SEVELAMER **CARBONate** 800 MG TAB PO (17:01)
[2017-11-12 19:03] LABS: HEMATOCRIT 26.1 % (42.0-52.0); HEMOGLOBIN 8.6 g/dl (13.5-17.5); MEAN CORPUSCULAR VOLUME 94.2 fl (80.0-96.0); PLATELET COUNT, AUTOMATED 277 10^3/uL (150-450); RED BLOOD COUNT 2.77 10^6/uL (4.30-6.10); RED CELL DISTRIBUTION WIDTH 18.1 % (11.5-14.5); WHITE BLOOD COUNT 11.4 10^3/uL (4.0-10.0)
[2017-11-12] MEDS: ASPIRIN 325 MG TAB PO (21:00)
[2017-11-12] MEDS: EZETIMIBE 10 MG TAB (ZETIA) PO (22:05)
[2017-11-13] MEDS: SLF 3 ML SYR IV ×3 (03:43→20:23)
[2017-11-13 05:35] LABS: HEMATOCRIT 23.6 % (42.0-52.0); HEMOGLOBIN 7.7 g/dl (13.5-17.5); MEAN CORPUSCULAR HEMOGLOBIN 30.8 pg (27.0-33.0); MEAN CORPUSCULAR HGB CONC 32.6 g/dl (32.0-36.5); MEAN CORPUSCULAR VOLUME 94.4 fl (80.0-96.0); PLATELET COUNT, AUTOMATED 292 10^3/uL (150-450); RED CELL DISTRIBUTION WIDTH 18.1 % (11.5-14.5); WHITE BLOOD COUNT 9.7 10^3/uL (4.0-10.0)
[2017-11-13 05:49] LABS: BLOOD UREA NITROGEN 27 MG/DL (7-18); CARBON DIOXIDE LEVEL 29 MEQ/L (21-32); CHLORIDE LEVEL 103 MEQ/L (98-107); CREATININE FOR GFR 3.77 MG/DL (0.70-1.30); GLOMERULAR FILTRATION RATE 16.8 (>42); GLUCOSE, FASTING 112 MG/DL (70-100); POTASSIUM SERUM 3.8 MEQ/L (3.5-5.1); SODIUM LEVEL 142 MEQ/L (136-145)
[2017-11-13 05:50] LABS: ALBUMIN 1.6 GM/DL (3.2-5.2); ANION GAP 10 MEQ/L (8-16); CALCIUM LEVEL 7.6 MG/DL (8.8-10.2); PHOSPHORUS LEVEL 3.6 MG/DL (2.5-4.9)
[2017-11-13] MEDS: LEVOTHYROXINE 75MCG TABLET (0.075MG) PO (06:48)
[2017-11-13] MEDS: FEBUXOSTAT 40 MG TABLET (ULORIC) PO (06:49)
[2017-11-13] MEDS: MIDODRINE 5 MG TAB PO ×2 (06:49→20:20)
[2017-11-13] MEDS: SERTRALINE HCL 50 MG TAB PO (06:49)
[2017-11-13] MEDS: GOLYTELY SOLN 4000 ML BTL PO (08:05)
[2017-11-13] MEDS: PANTOPRAZOLE 40MG TAB (PROTONIX) PO ×2 (09:00→20:21)
[2017-11-13 10:27] LABS: IMMEDIATE SPIN CROSSMATCH 1 2
[2017-11-13] MEDS: (RENVELA) SEVELAMER **CARBONate** 800 MG TAB PO (17:43)
[2017-11-13] MEDS: ASPIRIN 325 MG TAB PO ×2 (20:20→20:31)
[2017-11-13] MEDS: EZETIMIBE 10 MG TAB (ZETIA) PO (20:21)
[2017-11-14 06:13] LABS: HEMATOCRIT 25.6 % (42.0-52.0); HEMOGLOBIN 8.4 g/dl (13.5-17.5); MEAN CORPUSCULAR HGB CONC 32.8 g/dl (32.0-36.5); MEAN CORPUSCULAR VOLUME 94.5 fl (80.0-96.0); PLATELET COUNT, AUTOMATED 319 10^3/uL (150-450); RED BLOOD COUNT 2.71 10^6/uL (4.30-6.10); RED CELL DISTRIBUTION WIDTH 17.9 % (11.5-14.5); WHITE BLOOD COUNT 10.5 10^3/uL (4.0-10.0)
[2017-11-14] MEDS: FEBUXOSTAT 40 MG TABLET (ULORIC) PO (06:18)
[2017-11-14] MEDS: SLF 3 ML SYR IV ×3 (06:18→22:11)
[2017-11-14] MEDS: SERTRALINE HCL 50 MG TAB PO (06:18)
[2017-11-14] MEDS: LEVOTHYROXINE 75MCG TABLET (0.075MG) PO (06:19)
[2017-11-14] MEDS: PANTOPRAZOLE 40MG TAB (PROTONIX) PO ×2 (06:19→22:11)
[2017-11-14 06:30] LABS: ALBUMIN 1.7 GM/DL (3.2-5.2); ANION GAP 13 MEQ/L (8-16); BLOOD UREA NITROGEN 29 MG/DL (7-18); CALCIUM LEVEL 7.6 MG/DL (8.8-10.2); CARBON DIOXIDE LEVEL 26 MEQ/L (21-32); CHLORIDE LEVEL 100 MEQ/L (98-107); CREATININE FOR GFR 4.24 MG/DL (0.70-1.30); GLOMERULAR FILTRATION RATE 14.6 (>42); GLUCOSE, FASTING 92 MG/DL (70-100); PHOSPHORUS LEVEL 4.4 MG/DL (2.5-4.9); POTASSIUM SERUM 3.9 MEQ/L (3.5-5.1); SODIUM LEVEL 139 MEQ/L (136-145)
[2017-11-14] MEDS: MIDODRINE 5 MG TAB PO ×3 (09:09→15:05)
[2017-11-14] MEDS ORDERED: fentaNYL 100 MCG/2 ML INJECTION (J3010) As Ordered (10:13)
[2017-11-14] MEDS ORDERED: MIDAZOLAM INJ 2 MG/2 ML VIAL (J2250) As Ordered (10:14)
[2017-11-14] MEDS ORDERED: LIDOCAINE 2% INJ 100 MG/5 ML SDV (FOR ANES.) As Ordered (10:21)
[2017-11-14] MEDS ORDERED: ROCURONIUM BROMIDE 50 MG/5 ML VIAL As Ordered (10:21)
[2017-11-14] MEDS ORDERED: PROPOFOL 200 MG/20 ML VIAL As Ordered (10:21)
[2017-11-14] MEDS: LIDOCAINE 1% SDV 5 ML VIAL SQ (11:15)
[2017-11-14] MEDS: BUPIVACAINE/EPIN 0.25% 30 ML VIAL As Ordered (11:32)
[2017-11-14] MEDS ORDERED: ePHEDrine SULFATE 25 MG/5 ML(5MG/ML) SYRINGE As Ordered (12:26)
[2017-11-14] MEDS: THROMBIN SOLN 20,000 UNITS KIT As Ordered (13:02)
[2017-11-14] MEDS ORDERED: fentaNYL 100 MCG/2 ML INJECTION (J3010) IV (13:30)
[2017-11-14] MEDS ORDERED: ONDANSETRON 4MG/2ML VIAL (J2405) IV (13:30)
[2017-11-14] MEDS ORDERED: PERCOCET 5MG/325MG TAB PO (13:30)
[2017-11-14] MEDS: LR 1,000 ML IV (13:30)
[2017-11-14] MEDS ORDERED: CETACAINE SPRAY 5GM As Ordered (13:49)
[2017-11-14] MEDS: MORPHINE 4 MG/ML 1ML VIAL/SYRINGE (J2270) IV ×2 (14:18→17:47)
[2017-11-14 14:48] LABS: IMMEDIATE SPIN CROSSMATCH 1 1
[2017-11-14 14:57] LABS: INR 1.27; PROTHROMBIN TIME 16.1 SECONDS (12.1-14.4)
[2017-11-14 14:58] LABS: PARTIAL THROMBOPLASTIN TIME 32.5 SECONDS (25.4-37.6)
[2017-11-14 15:52] LABS: TYPE AND SCREEN 1
[2017-11-14 16:03] LABS: HEMATOCRIT 25.9 % (42.0-52.0); HEMOGLOBIN 8.6 g/dl (13.5-17.5)
[2017-11-14 16:47] LABS: IMMEDIATE SPIN CROSSMATCH 1
[2017-11-14] MEDS: (RENVELA) SEVELAMER **CARBONate** 800 MG TAB PO (17:08)
[2017-11-14 17:56] LABS: TYPE AND SCREEN 1
[2017-11-14] MEDS: ASPIRIN 325 MG TAB PO (21:00)
[2017-11-14] MEDS: EZETIMIBE 10 MG TAB (ZETIA) PO (22:11)
[2017-11-15 05:39] LABS: BASO % 0.4 % (0.0-1.0); EOS # 0.1 10^3/uL (0.0-0.50); EOS % 1.2 % (0.0-3.0); HEMOGLOBIN 7.8 g/dl (13.5-17.5); IMMATURE GRANULOCYTE % 1.2 % (0-3.0); LYMPH # 0.7 10^3/uL (1.5-4.5); LYMPH % 7.3 % (24.0-44.0); MEAN CORPUSCULAR HEMOGLOBIN 30.8 pg (27.0-33.0); MEAN CORPUSCULAR HGB CONC 32.5 g/dl (32.0-36.5); MEAN CORPUSCULAR VOLUME 94.9 fl (80.0-96.0); MONO % 10.1 % (0.0-5.0); NEUTROPHILS # 7.7 10^3/uL (1.8-7.7); NEUTROPHILS % 79.8 % (36.0-66.0); PLATELET COUNT, AUTOMATED 264 10^3/uL (150-450); RED BLOOD COUNT 2.53 10^6/uL (4.30-6.10); RED CELL DISTRIBUTION WIDTH 17.1 % (11.5-14.5); WHITE BLOOD COUNT 9.7 10^3/uL (4.0-10.0)
[2017-11-15 05:52] LABS: ALBUMIN 1.8 GM/DL (3.2-5.2); ALBUMIN/GLOBULIN RATIO 0.53 (1.00-1.93); ALKALINE PHOSPHATASE 86 U/L (45-117); ALT/SGPT 14 U/L (12-78); ANION GAP 9 MEQ/L (8-16); AST/SGOT 21 U/L (7-37); BILIRUBIN,TOTAL 1.2 MG/DL (0.2-1.0); BLOOD UREA NITROGEN 16 MG/DL (7-18); CALCIUM LEVEL 7.9 MG/DL (8.8-10.2); CARBON DIOXIDE LEVEL 30 MEQ/L (21-32); CHLORIDE LEVEL 102 MEQ/L (98-107); CREATININE FOR GFR 3.08 MG/DL (0.70-1.30); GLOMERULAR FILTRATION RATE 21.2 (>42); GLUCOSE, FASTING 82 MG/DL (70-100); PHOSPHORUS LEVEL 3.4 MG/DL (2.5-4.9); POTASSIUM SERUM 3.9 MEQ/L (3.5-5.1); SODIUM LEVEL 141 MEQ/L (136-145); TOTAL PROTEIN 5.2 GM/DL (6.4-8.2)
[2017-11-15] MEDS: FEBUXOSTAT 40 MG TABLET (ULORIC) PO (06:19)
[2017-11-15] MEDS: SERTRALINE HCL 50 MG TAB PO (06:19)
[2017-11-15] MEDS: PANTOPRAZOLE 40MG TAB (PROTONIX) PO ×2 (06:19→21:47)
[2017-11-15] MEDS: LEVOTHYROXINE 75MCG TABLET (0.075MG) PO (06:19)
[2017-11-15] MEDS: SLF 3 ML SYR IV ×3 (06:20→21:48)
[2017-11-15] MEDS: MIDODRINE 5 MG TAB PO ×3 (08:49→16:42)
[2017-11-15 13:55] LABS: IMMEDIATE SPIN CROSSMATCH 1 2
[2017-11-15 16:17] LABS: HEMATOCRIT 30.8 % (42.0-52.0)
[2017-11-15] MEDS: (RENVELA) SEVELAMER **CARBONate** 800 MG TAB PO (16:42)
[2017-11-15] MEDS: EZETIMIBE 10 MG TAB (ZETIA) PO (21:47)
[2017-11-16] MEDS ORDERED: DOCUSATE SOD LIQ 100MG/10ML UDC PO (01:15)
[2017-11-16] MEDS: MORPHINE 4 MG/ML 1ML VIAL/SYRINGE (J2270) IV (03:48)
[2017-11-16 05:54] LABS: BASO # 0.1 10^3/uL (0.0-0.2); BASO % 0.7 % (0.0-1.0); EOS # 0.1 10^3/uL (0.0-0.50); HEMATOCRIT 26.9 % (42.0-52.0); HEMOGLOBIN 8.7 g/dl (13.5-17.5); IMMATURE GRANULOCYTE % 0.9 % (0-3.0); LYMPH # 0.7 10^3/uL (1.5-4.5); LYMPH % 7.5 % (24.0-44.0); MEAN CORPUSCULAR HEMOGLOBIN 30.9 pg (27.0-33.0); MEAN CORPUSCULAR HGB CONC 32.3 g/dl (32.0-36.5); MEAN CORPUSCULAR VOLUME 95.4 fl (80.0-96.0); MONO % 10.2 % (0.0-5.0); NEUTROPHILS # 7.6 10^3/uL (1.8-7.7); NEUTROPHILS % 79.7 % (36.0-66.0); PLATELET COUNT, AUTOMATED 212 10^3/uL (150-450); RED BLOOD COUNT 2.82 10^6/uL (4.30-6.10); RED CELL DISTRIBUTION WIDTH 16.7 % (11.5-14.5); WHITE BLOOD COUNT 9.6 10^3/uL (4.0-10.0)
[2017-11-16 06:06] LABS: INR 1.32; PROTHROMBIN TIME 16.6 SECONDS (12.1-14.4)
[2017-11-16 06:12] LABS: ALBUMIN 1.7 GM/DL (3.2-5.2); ALBUMIN/GLOBULIN RATIO 0.57 (1.00-1.93); ALKALINE PHOSPHATASE 77 U/L (45-117); ALT/SGPT 12 U/L (12-78); ANION GAP 10 MEQ/L (8-16); AST/SGOT 14 U/L (7-37); BILIRUBIN,TOTAL 0.8 MG/DL (0.2-1.0); BLOOD UREA NITROGEN 21 MG/DL (7-18); CALCIUM LEVEL 7.6 MG/DL (8.8-10.2); CARBON DIOXIDE LEVEL 28 MEQ/L (21-32); CHLORIDE LEVEL 101 MEQ/L (98-107); CREATININE FOR GFR 4.11 MG/DL (0.70-1.30); GLOMERULAR FILTRATION RATE 15.2 (>42); GLUCOSE, FASTING 124 MG/DL (70-100); POTASSIUM SERUM 3.7 MEQ/L (3.5-5.1); SODIUM LEVEL 139 MEQ/L (136-145); TOTAL PROTEIN 4.7 GM/DL (6.4-8.2)
[2017-11-16] MEDS: SLF 3 ML SYR IV ×2 (06:46→14:00)
[2017-11-16] MEDS: LEVOTHYROXINE 75MCG TABLET (0.075MG) PO (06:46)
[2017-11-16] MEDS: MIDODRINE 5 MG TAB PO ×3 (06:52→16:30)
[2017-11-16] MEDS ORDERED: CETACAINE SPRAY 5GM (08:06)
[2017-11-16] MEDS: SERTRALINE HCL 50 MG TAB PO (08:51)
[2017-11-16] MEDS: FEBUXOSTAT 40 MG TABLET (ULORIC) PO (08:51)
[2017-11-16] MEDS: PANTOPRAZOLE 40MG TAB (PROTONIX) PO (08:52)
[2017-11-16 12:50] LABS: IMMEDIATE SPIN CROSSMATCH 1 1
[2017-11-16] MEDS: (RENVELA) SEVELAMER **CARBONate** 800 MG TAB PO (16:30)
[2017-11-16 16:32] LABS: HEMATOCRIT 31.1 % (42.0-52.0); HEMOGLOBIN 10.3 g/dl (13.5-17.5)
[2017-11-16 17:36] LABS: POS COUNT POS FLAG
== END 2017-11-16 18:45 | disposition short-term general hospital (02) | DRG 347 ==
LOC: M ED 10:38 → M ED INP 15:29 → M PCU 16:21
PROC: 0DLP8ZZ Occlusion of Rectum, Via Natural or Artificial Opening Endoscopic (ICD-10-PCS; principal; 2017-11-14 11:15)
PROC: 0DBK8ZX Excision of Ascending Colon, Via Natural or Artificial Opening Endoscopic, Diagnostic (ICD-10-PCS; 2017-11-14 11:15)
PROC: 5A1D70Z Performance of Urinary Filtration, Intermittent, Less than 6 Hours Per Day (ICD-10-PCS; 2017-11-14 12:16)
PROC: 30233N1 Transfusion of Nonautologous Red Blood Cells into Peripheral Vein, Percutaneous Approach (ICD-10-PCS; 2017-11-14 12:16)
PROC: 30233K1 Transfusion of Nonautologous Frozen Plasma into Peripheral Vein, Percutaneous Approach (ICD-10-PCS; 2017-11-14 12:16)
PROC: 30233M1 Transfusion of Nonautologous Plasma Cryoprecipitate into Peripheral Vein, Percutaneous Approach (ICD-10-PCS; 2017-11-14 12:16)
PROC: 30233R1 Transfusion of Nonautologous Platelets into Peripheral Vein, Percutaneous Approach (ICD-10-PCS; 2017-11-14 12:16)
PROC: 0W9G3ZZ Drainage of Peritoneal Cavity, Percutaneous Approach (ICD-10-PCS; 2017-11-14 12:16)
DX: K64.5 Perianal venous thrombosis (principal); N18.6 End stage renal disease; I50.22 Chronic systolic (congestive) heart failure; R18.8 Other ascites; D62 Acute posthemorrhagic anemia; F32.9 Major depressive disorder, single episode, unspecified; I25.10 Atherosclerotic heart disease of native coronary artery without angina pectoris; I48.0 Paroxysmal atrial fibrillation; K64.8 Other hemorrhoids; R53.83 Other fatigue; I95.89 Other hypotension; K74.60 Unspecified cirrhosis of liver; D12.2 Benign neoplasm of ascending colon; E87.5 Hyperkalemia; E03.9 Hypothyroidism, unspecified; E11.22 Type 2 diabetes mellitus with diabetic chronic kidney disease; Z95.810 Presence of automatic (implantable) cardiac defibrillator; Z99.2 Dependence on renal dialysis; Z87.891 Personal history of nicotine dependence; Z79.82 Long term (current) use of aspirin; Z95.5 Presence of coronary angioplasty implant and graft; Z79.899 Other long term (current) drug therapy; Z88.8 Allergy status to other drugs, medicaments and biological substances

== ENCOUNTER → 2017-11-30 | Outpatient (CLI) | payer MEDICARE ==
[2017-11-30 11:14] LABS: TYPE AND SCREEN 1
== END ==
LOC: M RADPRO 10:44
DX: N18.6 End stage renal disease (principal); I50.9 Heart failure, unspecified; R18.8 Other ascites; E11.9 Type 2 diabetes mellitus without complications; I49.9 Cardiac arrhythmia, unspecified; Z79.899 Other long term (current) drug therapy; Z88.8 Allergy status to other drugs, medicaments and biological substances; Z91.048 Other nonmedicinal substance allergy status; Z85.46 Personal history of malignant neoplasm of prostate
CPT/HCPCS: 49083

== ENCOUNTER 2017-12-06 10:09 | Inpatient (IN) | payer MEDICARE ==
[2017-12-06 11:26] LABS: ABG BASE EXCESS 2.6 (-2.0-2.0); ABG HCO3 26.6 MEQ/L (22.0-26.0); ABG O2 SATURATION 97.5 % (95.0-99.0); ABG PARTIAL PRESSURE CO2 38.4 mmHg (35.0-45.0); ABG PARTIAL PRESSURE O2 99.2 mmHg (75.0-100.0); ABG STANDARD HCO3 26.8 MEQ/L (22.0-26.0); ABG TOTAL CO2 27.8 MEQ/L (23.0-31.0); ABG pH (ARTERIAL) 7.458 UNITS (7.350-7.450)
[2017-12-06 12:49] LABS: BASO % 0.5 % (0.0-1.0); EOS # 0.1 10^3/uL (0.0-0.50); EOS % 1.2 % (0.0-3.0); HEMATOCRIT 26.3 % (42.0-52.0); HEMOGLOBIN 8.1 g/dl (13.5-17.5); IMMATURE GRANULOCYTE % 0.6 % (0-3.0); LYMPH # 0.6 10^3/uL (1.5-4.5); MEAN CORPUSCULAR HEMOGLOBIN 29.9 pg (27.0-33.0); MEAN CORPUSCULAR HGB CONC 30.8 g/dl (32.0-36.5); MONO # 0.9 10^3/uL (0.0-0.8); NEUTROPHILS # 6.1 10^3/uL (1.8-7.7); NEUTROPHILS % 78.7 % (36.0-66.0); PLATELET COUNT, AUTOMATED 342 10^3/uL (150-450); RED BLOOD COUNT 2.71 10^6/uL (4.30-6.10); RED CELL DISTRIBUTION WIDTH 15.9 % (11.5-14.5); WHITE BLOOD COUNT 7.8 10^3/uL (4.0-10.0)
[2017-12-06 13:15] LABS: AMMONIA 26 uMOL/L (<32)
[2017-12-06 13:20] LABS: LACTIC ACID SEPSIS PROTOCOL 1.9 MMOL/L (0.4-2.0)
[2017-12-06 14:02] LABS: ALBUMIN 2.1 GM/DL (3.2-5.2); ALBUMIN/GLOBULIN RATIO 0.57 (1.00-1.93); ALKALINE PHOSPHATASE 113 U/L (45-117); ALT/SGPT 16 U/L (12-78); ANION GAP 11 MEQ/L (8-16); AST/SGOT 35 U/L (7-37); BILIRUBIN,DIRECT 0.5 MG/DL (0.0-0.2); BLOOD UREA NITROGEN 25 MG/DL (7-18); CARBON DIOXIDE LEVEL 24 MEQ/L (21-32); CHLORIDE LEVEL 102 MEQ/L (98-107); CPK CREATINE PHOSPHOKINASE 96 U/L (39-308); CREATININE FOR GFR 4.88 MG/DL (0.70-1.30); GLOMERULAR FILTRATION RATE 12.4 (>42); GLUCOSE, FASTING 98 MG/DL (70-100); LIPASE 86 U/L (73-393); MB/CK RELATIVE INDEX 6.25 (< OR =4); SODIUM LEVEL 137 MEQ/L (136-145); TOTAL PROTEIN 5.8 GM/DL (6.4-8.2); TROPONIN I 0.21 NG/ML (< 0.10)
[2017-12-06 16:44] LABS: CPK CREATINE PHOSPHOKINASE 59 U/L (39-308); MB/CK RELATIVE INDEX 9.83 (< OR =4); TROPONIN I 0.23 NG/ML (< 0.10)
[2017-12-06] MEDS ORDERED: ACETAMINOPHEN TAB 650MG DOSE (2X325MG) PO (19:45)
[2017-12-06] MEDS ORDERED: ANUSOL HC CREAM 30GM EXT (19:45)
[2017-12-06] MEDS: DOCUSATE SODIUM 100 MG CAP PO (22:34)
[2017-12-06] MEDS: PANTOPRAZOLE 40MG TAB (PROTONIX) PO (22:34)
[2017-12-07 05:27] LABS: HEMATOCRIT 26.5 % (42.0-52.0); HEMOGLOBIN 8.4 g/dl (13.5-17.5); MEAN CORPUSCULAR HEMOGLOBIN 29.7 pg (27.0-33.0); MEAN CORPUSCULAR HGB CONC 31.7 g/dl (32.0-36.5); MEAN CORPUSCULAR VOLUME 93.6 fl (80.0-96.0); PLATELET COUNT, AUTOMATED 291 10^3/uL (150-450); RED BLOOD COUNT 2.83 10^6/uL (4.30-6.10); RED CELL DISTRIBUTION WIDTH 15.9 % (11.5-14.5)
[2017-12-07 05:52] LABS: ANION GAP 12 MEQ/L (8-16); BLOOD UREA NITROGEN 28 MG/DL (7-18); CARBON DIOXIDE LEVEL 26 MEQ/L (21-32); CHLORIDE LEVEL 104 MEQ/L (98-107); GLOMERULAR FILTRATION RATE 10.6 (>42); GLUCOSE, FASTING 99 MG/DL (70-100); MAGNESIUM LEVEL 2.2 MG/DL (1.8-2.4); POTASSIUM SERUM 4.2 MEQ/L (3.5-5.1); SODIUM LEVEL 142 MEQ/L (136-145)
[2017-12-07] MEDS: LEVOTHYROXINE 75MCG TABLET (0.075MG) PO (06:36)
[2017-12-07] MEDS: MIDODRINE 5 MG TAB PO ×3 (08:12→18:44)
[2017-12-07] MEDS: FEBUXOSTAT 40 MG TABLET (ULORIC) PO (08:13)
[2017-12-07] MEDS: SERTRALINE HCL 50 MG TAB PO (08:13)
[2017-12-07] MEDS: METAMUCIL (PSYLLIUM) PACKET PO (08:13)
[2017-12-07] MEDS: PANTOPRAZOLE 40MG TAB (PROTONIX) PO ×2 (08:13→20:41)
[2017-12-07 13:21] LABS: TROPONIN I 0.24 NG/ML (< 0.10)
[2017-12-07 19:43] LABS: HEMATOCRIT 23.7 % (42.0-52.0); HEMOGLOBIN 7.4 g/dl (13.5-17.5); MEAN CORPUSCULAR HEMOGLOBIN 30.2 pg (27.0-33.0); MEAN CORPUSCULAR HGB CONC 31.2 g/dl (32.0-36.5); MEAN CORPUSCULAR VOLUME 96.7 fl (80.0-96.0); PLATELET COUNT, AUTOMATED 269 10^3/uL (150-450); RED BLOOD COUNT 2.45 10^6/uL (4.30-6.10); RED CELL DISTRIBUTION WIDTH 15.8 % (11.5-14.5); WHITE BLOOD COUNT 8.3 10^3/uL (4.0-10.0)
[2017-12-07] MEDS: DOCUSATE SODIUM 100 MG CAP PO (20:41)
[2017-12-08 00:29] LABS: HEMATOCRIT 25.9 % (42.0-52.0); MEAN CORPUSCULAR HEMOGLOBIN 29.9 pg (27.0-33.0); MEAN CORPUSCULAR HGB CONC 30.9 g/dl (32.0-36.5); MEAN CORPUSCULAR VOLUME 96.6 fl (80.0-96.0); PLATELET COUNT, AUTOMATED 220 10^3/uL (150-450); RED BLOOD COUNT 2.68 10^6/uL (4.30-6.10); RED CELL DISTRIBUTION WIDTH 15.8 % (11.5-14.5)
[2017-12-08] MEDS: LEVOTHYROXINE 75MCG TABLET (0.075MG) PO (06:13)
[2017-12-08] MEDS: PIPERACILLIN/TAZOBACTAM SOD 2.25 GM in D5W MINI-BAG PLUS 50 ML IV ×3 (07:04→23:11)
[2017-12-08] MEDS: METAMUCIL (PSYLLIUM) PACKET PO (07:33)
[2017-12-08] MEDS: SERTRALINE HCL 50 MG TAB PO (07:33)
[2017-12-08] MEDS: FEBUXOSTAT 40 MG TABLET (ULORIC) PO (07:33)
[2017-12-08] MEDS: PANTOPRAZOLE 40MG TAB (PROTONIX) PO ×2 (07:34→20:19)
[2017-12-08] MEDS: MIDODRINE 5 MG TAB PO ×3 (07:34→16:14)
[2017-12-08 10:19] LABS: IMMEDIATE SPIN CROSSMATCH 1 1
[2017-12-08 10:19] LABS: HEMATOCRIT 25.2 % (42.0-52.0); HEMOGLOBIN 7.8 g/dl (13.5-17.5); MEAN CORPUSCULAR HEMOGLOBIN 29.7 pg (27.0-33.0); MEAN CORPUSCULAR VOLUME 95.8 fl (80.0-96.0); PLATELET COUNT, AUTOMATED 268 10^3/uL (150-450); RED BLOOD COUNT 2.63 10^6/uL (4.30-6.10); RED CELL DISTRIBUTION WIDTH 15.7 % (11.5-14.5); WHITE BLOOD COUNT 8.1 10^3/uL (4.0-10.0)
[2017-12-08 10:55] LABS: ANION GAP 12 MEQ/L (8-16); BLOOD UREA NITROGEN 21 MG/DL (7-18); CALCIUM LEVEL 7.6 MG/DL (8.8-10.2); CARBON DIOXIDE LEVEL 28 MEQ/L (21-32); CHLORIDE LEVEL 102 MEQ/L (98-107); CREATININE FOR GFR 4.22 MG/DL (0.70-1.30); GLOMERULAR FILTRATION RATE 14.7 (>42); GLUCOSE, FASTING 129 MG/DL (70-100); MAGNESIUM LEVEL 1.9 MG/DL (1.8-2.4); POTASSIUM SERUM 3.4 MEQ/L (3.5-5.1); SODIUM LEVEL 142 MEQ/L (136-145)
[2017-12-08] MEDS: DOCUSATE SODIUM 100 MG CAP PO (20:19)
[2017-12-09] MEDS: LEVOTHYROXINE 75MCG TABLET (0.075MG) PO (06:00)
[2017-12-09 07:38] LABS: HEMATOCRIT 27.7 % (42.0-52.0); HEMOGLOBIN 8.8 g/dl (13.5-17.5); MEAN CORPUSCULAR HEMOGLOBIN 29.3 pg (27.0-33.0); MEAN CORPUSCULAR HGB CONC 31.8 g/dl (32.0-36.5); MEAN CORPUSCULAR VOLUME 92.3 fl (80.0-96.0); PLATELET COUNT, AUTOMATED 209 10^3/uL (150-450); RED CELL DISTRIBUTION WIDTH 15.9 % (11.5-14.5)
[2017-12-09] MEDS: PIPERACILLIN/TAZOBACTAM SOD 2.25 GM in D5W MINI-BAG PLUS 50 ML IV (07:40)
[2017-12-09 07:51] LABS: ANION GAP 11 MEQ/L (8-16); BLOOD UREA NITROGEN 26 MG/DL (7-18); CALCIUM LEVEL 7.7 MG/DL (8.8-10.2); CARBON DIOXIDE LEVEL 27 MEQ/L (21-32); CHLORIDE LEVEL 101 MEQ/L (98-107); GLOMERULAR FILTRATION RATE 12.4 (>42); GLUCOSE, FASTING 106 MG/DL (70-100); POTASSIUM SERUM 3.2 MEQ/L (3.5-5.1); SODIUM LEVEL 139 MEQ/L (136-145)
[2017-12-09] MEDS: SERTRALINE HCL 50 MG TAB PO (08:15)
[2017-12-09] MEDS: METAMUCIL (PSYLLIUM) PACKET PO (08:15)
[2017-12-09] MEDS: FEBUXOSTAT 40 MG TABLET (ULORIC) PO (08:16)
[2017-12-09] MEDS: MIDODRINE 5 MG TAB PO ×3 (08:16→15:43)
[2017-12-09] MEDS: PANTOPRAZOLE 40MG TAB (PROTONIX) PO ×2 (08:16→20:08)
[2017-12-09] MEDS: DOCUSATE SODIUM 100 MG CAP PO (20:08)
[2017-12-09] MEDS ORDERED: DARBEPOETIN 100 MCG/0.5 ML *DIALYSIS* SYRINGE (J0882) IV (20:15)
[2017-12-10] MEDS: LEVOTHYROXINE 75MCG TABLET (0.075MG) PO (05:09)
[2017-12-10 05:55] LABS: HEMATOCRIT 27.3 % (42.0-52.0); HEMOGLOBIN 8.7 g/dl (13.5-17.5); MEAN CORPUSCULAR HEMOGLOBIN 29.5 pg (27.0-33.0); MEAN CORPUSCULAR HGB CONC 31.9 g/dl (32.0-36.5); MEAN CORPUSCULAR VOLUME 92.5 fl (80.0-96.0); PLATELET COUNT, AUTOMATED 226 10^3/uL (150-450); RED BLOOD COUNT 2.95 10^6/uL (4.30-6.10); RED CELL DISTRIBUTION WIDTH 15.5 % (11.5-14.5); WHITE BLOOD COUNT 7.4 10^3/uL (4.0-10.0)
[2017-12-10 06:31] LABS: ANION GAP 11 MEQ/L (8-16); BLOOD UREA NITROGEN 33 MG/DL (7-18); CALCIUM LEVEL 7.7 MG/DL (8.8-10.2); CARBON DIOXIDE LEVEL 27 MEQ/L (21-32); CHLORIDE LEVEL 102 MEQ/L (98-107); CREATININE FOR GFR 5.64 MG/DL (0.70-1.30); GLOMERULAR FILTRATION RATE 10.5 (>42); GLUCOSE, FASTING 93 MG/DL (70-100); POTASSIUM SERUM 3.7 MEQ/L (3.5-5.1); SODIUM LEVEL 140 MEQ/L (136-145)
[2017-12-10] MEDS: FEBUXOSTAT 40 MG TABLET (ULORIC) PO (08:26)
[2017-12-10] MEDS: PANTOPRAZOLE 40MG TAB (PROTONIX) PO ×2 (08:26→20:08)
[2017-12-10] MEDS: METAMUCIL (PSYLLIUM) PACKET PO (08:26)
[2017-12-10] MEDS: MIDODRINE 5 MG TAB PO ×3 (08:27→17:36)
[2017-12-10] MEDS: SERTRALINE HCL 50 MG TAB PO (08:27)
[2017-12-10] MEDS ORDERED: LIDOCAINE 1% MDV 20ML VIAL As Ordered (12:56)
[2017-12-10] MEDS ORDERED: SODIUM CHLORIDE 0.9% INJ 10 ML SYR IV (17:45)
[2017-12-10] MEDS: SODIUM CHLORIDE 0.9% INJ 10 ML SYR IV (18:00)
[2017-12-10] MEDS: DOCUSATE SODIUM 100 MG CAP PO (20:08)
[2017-12-11] MEDS: LEVOTHYROXINE 75MCG TABLET (0.075MG) PO (05:09)
[2017-12-11] MEDS: SODIUM CHLORIDE 0.9% INJ 10 ML SYR IV ×2 (05:10→17:29)
[2017-12-11 05:22] LABS: HEMATOCRIT 27.4 % (42.0-52.0); HEMOGLOBIN 8.6 g/dl (13.5-17.5); MEAN CORPUSCULAR HEMOGLOBIN 29.5 pg (27.0-33.0); MEAN CORPUSCULAR HGB CONC 31.4 g/dl (32.0-36.5); MEAN CORPUSCULAR VOLUME 93.8 fl (80.0-96.0); PLATELET COUNT, AUTOMATED 199 10^3/uL (150-450); RED BLOOD COUNT 2.92 10^6/uL (4.30-6.10); RED CELL DISTRIBUTION WIDTH 15.7 % (11.5-14.5); WHITE BLOOD COUNT 7.5 10^3/uL (4.0-10.0)
[2017-12-11 06:18] LABS: ANION GAP 9 MEQ/L (8-16); BLOOD UREA NITROGEN 21 MG/DL (7-18); CALCIUM LEVEL 7.8 MG/DL (8.8-10.2); CARBON DIOXIDE LEVEL 28 MEQ/L (21-32); CHLORIDE LEVEL 102 MEQ/L (98-107); CREATININE FOR GFR 3.77 MG/DL (0.70-1.30); GLOMERULAR FILTRATION RATE 16.8 (>42); GLUCOSE, FASTING 100 MG/DL (70-100); MAGNESIUM LEVEL 1.9 MG/DL (1.8-2.4); POTASSIUM SERUM 3.5 MEQ/L (3.5-5.1); SODIUM LEVEL 139 MEQ/L (136-145)
[2017-12-11] MEDS: FEBUXOSTAT 40 MG TABLET (ULORIC) PO (08:04)
[2017-12-11] MEDS: METAMUCIL (PSYLLIUM) PACKET PO (08:04)
[2017-12-11] MEDS: MIDODRINE 5 MG TAB PO ×3 (08:04→17:28)
[2017-12-11] MEDS: PANTOPRAZOLE 40MG TAB (PROTONIX) PO ×2 (08:04→20:26)
[2017-12-11] MEDS: SERTRALINE HCL 50 MG TAB PO (08:04)
[2017-12-11] MEDS: DOCUSATE SODIUM 100 MG CAP PO (20:26)
[2017-12-12] MEDS: SODIUM CHLORIDE 0.9% INJ 10 ML SYR IV ×2 (05:40→17:08)
[2017-12-12] MEDS: LEVOTHYROXINE 75MCG TABLET (0.075MG) PO (05:40)
[2017-12-12 06:14] LABS: HEMATOCRIT 27.8 % (42.0-52.0); HEMOGLOBIN 8.8 g/dl (13.5-17.5); MEAN CORPUSCULAR HEMOGLOBIN 29.4 pg (27.0-33.0); MEAN CORPUSCULAR HGB CONC 31.7 g/dl (32.0-36.5); PLATELET COUNT, AUTOMATED 202 10^3/uL (150-450); RED BLOOD COUNT 2.99 10^6/uL (4.30-6.10); RED CELL DISTRIBUTION WIDTH 15.9 % (11.5-14.5); WHITE BLOOD COUNT 7.5 10^3/uL (4.0-10.0)
[2017-12-12 06:33] LABS: ANION GAP 9 MEQ/L (8-16); BLOOD UREA NITROGEN 15 MG/DL (7-18); CALCIUM LEVEL 8.4 MG/DL (8.8-10.2); CARBON DIOXIDE LEVEL 29 MEQ/L (21-32); CHLORIDE LEVEL 101 MEQ/L (98-107); CREATININE FOR GFR 2.92 MG/DL (0.70-1.30); GLOMERULAR FILTRATION RATE 22.5 (>42); GLUCOSE, FASTING 131 MG/DL (70-100); MAGNESIUM LEVEL 1.7 MG/DL (1.8-2.4); POTASSIUM SERUM 3.6 MEQ/L (3.5-5.1); SODIUM LEVEL 139 MEQ/L (136-145)
[2017-12-12] MEDS: FEBUXOSTAT 40 MG TABLET (ULORIC) PO (08:38)
[2017-12-12] MEDS: PANTOPRAZOLE 40MG TAB (PROTONIX) PO ×2 (08:38→21:04)
[2017-12-12] MEDS: MIDODRINE 5 MG TAB PO ×3 (08:38→15:26)
[2017-12-12] MEDS: SERTRALINE HCL 50 MG TAB PO (08:38)
[2017-12-12] MEDS: METAMUCIL (PSYLLIUM) PACKET PO (08:39)
[2017-12-12] MEDS: MAGNESIUM OXIDE 400 MG TAB (MAG-OX) PO (15:26)
[2017-12-12] MEDS: DOCUSATE SODIUM 100 MG CAP PO (21:04)
[2017-12-13] MEDS: LEVOTHYROXINE 75MCG TABLET (0.075MG) PO (05:35)
[2017-12-13] MEDS: SODIUM CHLORIDE 0.9% INJ 10 ML SYR IV (05:35)
[2017-12-13 05:56] LABS: HEMATOCRIT 29.1 % (42.0-52.0); MEAN CORPUSCULAR HEMOGLOBIN 29.6 pg (27.0-33.0); MEAN CORPUSCULAR HGB CONC 30.9 g/dl (32.0-36.5); MEAN CORPUSCULAR VOLUME 95.7 fl (80.0-96.0); PLATELET COUNT, AUTOMATED 208 10^3/uL (150-450); RED BLOOD COUNT 3.04 10^6/uL (4.30-6.10); RED CELL DISTRIBUTION WIDTH 15.9 % (11.5-14.5); WHITE BLOOD COUNT 7.3 10^3/uL (4.0-10.0)
[2017-12-13 06:28] LABS: ANION GAP 9 MEQ/L (8-16); BLOOD UREA NITROGEN 20 MG/DL (7-18); CALCIUM LEVEL 7.7 MG/DL (8.8-10.2); CARBON DIOXIDE LEVEL 29 MEQ/L (21-32); CHLORIDE LEVEL 101 MEQ/L (98-107); GLOMERULAR FILTRATION RATE 15.7 (>42); GLUCOSE, FASTING 96 MG/DL (70-100); MAGNESIUM LEVEL 1.9 MG/DL (1.8-2.4); SODIUM LEVEL 139 MEQ/L (136-145)
[2017-12-13] MEDS: METAMUCIL (PSYLLIUM) PACKET PO (08:34)
[2017-12-13] MEDS: PANTOPRAZOLE 40MG TAB (PROTONIX) PO (08:36)
[2017-12-13] MEDS: MIDODRINE 5 MG TAB PO (08:36)
[2017-12-13] MEDS: FEBUXOSTAT 40 MG TABLET (ULORIC) PO (08:36)
[2017-12-13] MEDS: SERTRALINE HCL 50 MG TAB PO (08:37)
== END 2017-12-13 11:50 | disposition home health service (06) | DRG 314 ==
LOC: M ED 10:09 → M ED INP 19:38 → M PCU 21:45
PROC: 5A1D70Z Performance of Urinary Filtration, Intermittent, Less than 6 Hours Per Day (ICD-10-PCS; principal; 2017-12-07)
PROC: 30233N1 Transfusion of Nonautologous Red Blood Cells into Peripheral Vein, Percutaneous Approach (ICD-10-PCS; 2017-12-08)
PROC: 02HV33Z Insertion of Infusion Device into Superior Vena Cava, Percutaneous Approach (ICD-10-PCS; 2017-12-10)
DX: I95.89 Other hypotension (principal); N18.6 End stage renal disease; J96.01 Acute respiratory failure with hypoxia; I50.23 Acute on chronic systolic (congestive) heart failure; R18.8 Other ascites; K62.5 Hemorrhage of anus and rectum; R53.1 Weakness; K74.60 Unspecified cirrhosis of liver; G47.33 Obstructive sleep apnea (adult) (pediatric); Z66 Do not resuscitate; E03.9 Hypothyroidism, unspecified; D50.0 Iron deficiency anemia secondary to blood loss (chronic); I25.5 Ischemic cardiomyopathy; I25.10 Atherosclerotic heart disease of native coronary artery without angina pectoris; I48.0 Paroxysmal atrial fibrillation; K72.90 Hepatic failure, unspecified without coma; K64.8 Other hemorrhoids; D63.1 Anemia in chronic kidney disease; I36.1 Nonrheumatic tricuspid (valve) insufficiency; Z99.2 Dependence on renal dialysis; Z95.810 Presence of automatic (implantable) cardiac defibrillator; Z95.1 Presence of aortocoronary bypass graft; Z79.899 Other long term (current) drug therapy; Z88.8 Allergy status to other drugs, medicaments and biological substances; Z91.048 Other nonmedicinal substance allergy status

== ENCOUNTER → 2017-12-14 | Outpatient (CLI) | payer MEDICARE | LOC: M RADPRO 11:12 | DX: N18.6 End stage renal disease (principal); I50.9 Heart failure, unspecified; R18.8 Other ascites; E03.9 Hypothyroidism, unspecified; Z79.899 Other long term (current) drug therapy; Z85.46 Personal history of malignant neoplasm of prostate; Z88.8 Allergy status to other drugs, medicaments and biological substances; Z91.048 Other nonmedicinal substance allergy status; Z95.810 Presence of automatic (implantable) cardiac defibrillator; Z99.2 Dependence on renal dialysis | CPT/HCPCS: 49083 ==

== ENCOUNTER 2017-12-19 14:54 | Inpatient (IN) | payer MEDICARE ==
[2017-12-19 15:38] LABS: VENOUS BASE EXCESS 1.6 (-2.0-2.0); VENOUS HCO3 28.6 MEQ/L (23.0-27.0); VENOUS O2 SATURATION 62.4 % (60.0-80.0); VENOUS PARTIAL PRESSURE CO2 56.9 mmHg (38.0-50.0); VENOUS PARTIAL PRESSURE O2 34.6 mmHg (30.0-50.0); VENOUS PH 7.319 UNITS (7.330-7.430); VENOUS STANDARD HCO3 25.2 MEQ/L; VENOUS TOTAL CO2 30.3 MEQ/L (24.0-28.0)
[2017-12-19 15:44] LABS: BASO # 0.1 10^3/uL (0.0-0.2); BASO % 0.9 % (0.0-1.0); EOS # 0.1 10^3/uL (0.0-0.50); EOS % 1.5 % (0.0-3.0); HEMATOCRIT 33.9 % (42.0-52.0); HEMOGLOBIN 10.1 g/dl (13.5-17.5); IMMATURE GRANULOCYTE % 0.7 % (0-3.0); LYMPH # 0.7 10^3/uL (1.5-4.5); LYMPH % 9.2 % (24.0-44.0); MEAN CORPUSCULAR HEMOGLOBIN 28.9 pg (27.0-33.0); MEAN CORPUSCULAR HGB CONC 29.8 g/dl (32.0-36.5); MEAN CORPUSCULAR VOLUME 96.9 fl (80.0-96.0); MONO # 0.8 10^3/uL (0.0-0.8); MONO % 11.1 % (0.0-5.0); NEUTROPHILS # 5.7 10^3/uL (1.8-7.7); NEUTROPHILS % 76.6 % (36.0-66.0); PLATELET COUNT, AUTOMATED 209 10^3/uL (150-450); RED CELL DISTRIBUTION WIDTH 16.2 % (11.5-14.5); WHITE BLOOD COUNT 7.5 10^3/uL (4.0-10.0)
[2017-12-19 15:48] LABS: INR 1.27; PROTHROMBIN TIME 16.1 SECONDS (12.1-14.4)
[2017-12-19 16:52] LABS: ALBUMIN 2.3 GM/DL (3.2-5.2); ALBUMIN/GLOBULIN RATIO 0.68 (1.00-1.93); ALKALINE PHOSPHATASE 119 U/L (45-117); ALT/SGPT 18 U/L (12-78); ANION GAP 7 MEQ/L (8-16); AST/SGOT 23 U/L (7-37); BILIRUBIN,DIRECT 0.4 MG/DL (0.0-0.2); BILIRUBIN,TOTAL 0.6 MG/DL (0.2-1.0); BLOOD UREA NITROGEN 17 MG/DL (7-18); CALCIUM LEVEL 8.1 MG/DL (8.8-10.2); CARBON DIOXIDE LEVEL 32 MEQ/L (21-32); CHLORIDE LEVEL 104 MEQ/L (98-107); CPK CREATINE PHOSPHOKINASE 50 U/L (39-308); CREATININE FOR GFR 3.87 MG/DL (0.70-1.30); GLOMERULAR FILTRATION RATE 16.3 (>42); GLUCOSE, FASTING 97 MG/DL (70-100); NT-PRO BNP 78252 PG/ML (<450); POTASSIUM SERUM 3.4 MEQ/L (3.5-5.1); SODIUM LEVEL 143 MEQ/L (136-145); TOTAL PROTEIN 5.7 GM/DL (6.4-8.2); TROPONIN I 0.15 NG/ML (< 0.10)
[2017-12-19 22:21] LABS: FREE T4 0.91 NG/DL (0.76-1.46)
[2017-12-19] MEDS: POTASSIUM CHLORIDE 10 MEQ SR TABLET PO (22:25)
[2017-12-19] MEDS ORDERED: ALBUTEROL 90 MCG/ACT 8GM HFA INHALER INH (23:45)
[2017-12-19] MEDS ORDERED: ANUSOL HC CREAM 30GM EXT (23:45)
[2017-12-20] MEDS: PANTOPRAZOLE 40MG TAB (PROTONIX) PO ×3 (00:36→20:10)
[2017-12-20] MEDS: EZETIMIBE 10 MG TAB (ZETIA) PO ×2 (00:36→20:10)
[2017-12-20] MEDS: DOCUSATE SODIUM 100 MG CAP PO (00:36)
[2017-12-20 01:25] LABS: CPK CREATINE PHOSPHOKINASE 82 U/L (39-308); MB/CK RELATIVE INDEX 4.76 (< OR =4)
[2017-12-20 01:28] LABS: TROPONIN I 0.08 NG/ML (< 0.10)
[2017-12-20] MEDS: LEVOTHYROXINE 75MCG TABLET (0.075MG) PO (05:15)
[2017-12-20] MEDS ORDERED: HEPARIN SOD (PORCINE) 5000 UNITS/ML VIAL SC (06:00)
[2017-12-20] MEDS: METAMUCIL (PSYLLIUM) PACKET PO (08:09)
[2017-12-20] MEDS: MIDODRINE 5 MG TAB PO ×3 (08:09→18:15)
[2017-12-20] MEDS: FEBUXOSTAT 40 MG TABLET (ULORIC) PO (08:09)
[2017-12-20] MEDS: SERTRALINE 100 MG TAB PO (08:09)
[2017-12-20] MEDS: ACETAMINOPHEN 500 MG TAB PO (08:10)
[2017-12-20] MEDS ORDERED: SLF 3 ML SYR IV (08:30)
[2017-12-20 08:32] LABS: HEMATOCRIT 30.7 % (42.0-52.0); HEMOGLOBIN 9.4 g/dl (13.5-17.5); MEAN CORPUSCULAR HEMOGLOBIN 29.5 pg (27.0-33.0); MEAN CORPUSCULAR HGB CONC 30.6 g/dl (32.0-36.5); MEAN CORPUSCULAR VOLUME 96.2 fl (80.0-96.0); PLATELET COUNT, AUTOMATED 203 10^3/uL (150-450); RED BLOOD COUNT 3.19 10^6/uL (4.30-6.10); RED CELL DISTRIBUTION WIDTH 15.9 % (11.5-14.5); WHITE BLOOD COUNT 6.9 10^3/uL (4.0-10.0)
[2017-12-20 08:59] LABS: ANION GAP 9 MEQ/L (8-16); BLOOD UREA NITROGEN 21 MG/DL (7-18); CALCIUM LEVEL 7.5 MG/DL (8.8-10.2); CARBON DIOXIDE LEVEL 29 MEQ/L (21-32); CHLORIDE LEVEL 104 MEQ/L (98-107); CPK CREATINE PHOSPHOKINASE 52 U/L (39-308); CREATININE FOR GFR 4.43 MG/DL (0.70-1.30); GLOMERULAR FILTRATION RATE 13.9 (>42); GLUCOSE, FASTING 110 MG/DL (70-100); MAGNESIUM LEVEL 2.1 MG/DL (1.8-2.4); MB/CK RELATIVE INDEX 7.69 (< OR =4); POTASSIUM SERUM 3.5 MEQ/L (3.5-5.1); SODIUM LEVEL 142 MEQ/L (136-145); TROPONIN I 0.15 NG/ML (< 0.10)
[2017-12-20 13:23] LABS: TYPE AND SCREEN 1
[2017-12-20 13:49] LABS: TYPE AND SCREEN 1
[2017-12-20] MEDS: SLF 3 ML SYR IV ×2 (18:15→22:00)
[2017-12-21] MEDS: SLF 3 ML SYR IV ×3 (05:16→22:00)
[2017-12-21] MEDS: LEVOTHYROXINE 75MCG TABLET (0.075MG) PO (05:16)
[2017-12-21 05:30] LABS: HEMATOCRIT 30.5 % (42.0-52.0); HEMOGLOBIN 9.5 g/dl (13.5-17.5); MEAN CORPUSCULAR HEMOGLOBIN 29.1 pg (27.0-33.0); MEAN CORPUSCULAR HGB CONC 31.1 g/dl (32.0-36.5); MEAN CORPUSCULAR VOLUME 93.6 fl (80.0-96.0); PLATELET COUNT, AUTOMATED 166 10^3/uL (150-450); RED BLOOD COUNT 3.26 10^6/uL (4.30-6.10); RED CELL DISTRIBUTION WIDTH 15.6 % (11.5-14.5); WHITE BLOOD COUNT 6.6 10^3/uL (4.0-10.0)
[2017-12-21 05:53] LABS: ANION GAP 7 MEQ/L (8-16); BLOOD UREA NITROGEN 13 MG/DL (7-18); CARBON DIOXIDE LEVEL 30 MEQ/L (21-32); CHLORIDE LEVEL 104 MEQ/L (98-107); GLOMERULAR FILTRATION RATE 19.6 (>42); GLUCOSE, FASTING 122 MG/DL (70-100); MAGNESIUM LEVEL 1.8 MG/DL (1.8-2.4); POTASSIUM SERUM 3.9 MEQ/L (3.5-5.1); SODIUM LEVEL 141 MEQ/L (136-145)
[2017-12-21] MEDS: METAMUCIL (PSYLLIUM) PACKET PO (08:27)
[2017-12-21] MEDS: ACETAMINOPHEN 500 MG TAB PO (08:27)
[2017-12-21] MEDS: MIDODRINE 5 MG TAB PO ×3 (08:27→18:58)
[2017-12-21] MEDS: SERTRALINE 100 MG TAB PO (08:27)
[2017-12-21] MEDS: PANTOPRAZOLE 40MG TAB (PROTONIX) PO ×2 (08:27→20:03)
[2017-12-21] MEDS: FEBUXOSTAT 40 MG TABLET (ULORIC) PO (08:28)
[2017-12-21] MEDS ORDERED: DARBEPOETIN 100 MCG/0.5 ML *DIALYSIS* SYRINGE (J0882) IV (09:00)
[2017-12-21 13:32] LABS: TYPE AND SCREEN 1
[2017-12-21] MEDS: EZETIMIBE 10 MG TAB (ZETIA) PO (20:03)
[2017-12-22 05:37] LABS: HEMATOCRIT 30.3 % (42.0-52.0); HEMOGLOBIN 9.1 g/dl (13.5-17.5); MEAN CORPUSCULAR VOLUME 96.5 fl (80.0-96.0); PLATELET COUNT, AUTOMATED 154 10^3/uL (150-450); RED BLOOD COUNT 3.14 10^6/uL (4.30-6.10); RED CELL DISTRIBUTION WIDTH 15.6 % (11.5-14.5); WHITE BLOOD COUNT 7.3 10^3/uL (4.0-10.0)
[2017-12-22 05:53] LABS: ANION GAP 6 MEQ/L (8-16); BLOOD UREA NITROGEN 21 MG/DL (7-18); CALCIUM LEVEL 7.9 MG/DL (8.8-10.2); CARBON DIOXIDE LEVEL 30 MEQ/L (21-32); CHLORIDE LEVEL 105 MEQ/L (98-107); CREATININE FOR GFR 3.95 MG/DL (0.70-1.30); GLOMERULAR FILTRATION RATE 15.9 (>42); GLUCOSE, FASTING 91 MG/DL (70-100); MAGNESIUM LEVEL 1.9 MG/DL (1.8-2.4); POTASSIUM SERUM 3.9 MEQ/L (3.5-5.1); SODIUM LEVEL 141 MEQ/L (136-145)
[2017-12-22] MEDS: LEVOTHYROXINE 75MCG TABLET (0.075MG) PO (05:59)
[2017-12-22] MEDS: SLF 3 ML SYR IV ×3 (05:59→22:01)
[2017-12-22] MEDS: MIDODRINE 5 MG TAB PO ×3 (08:00→17:34)
[2017-12-22] MEDS: METAMUCIL (PSYLLIUM) PACKET PO (12:21)
[2017-12-22] MEDS: FEBUXOSTAT 40 MG TABLET (ULORIC) PO (12:21)
[2017-12-22] MEDS: PANTOPRAZOLE 40MG TAB (PROTONIX) PO ×2 (12:21→20:03)
[2017-12-22] MEDS: SERTRALINE 100 MG TAB PO (12:21)
[2017-12-22] MEDS: EZETIMIBE 10 MG TAB (ZETIA) PO (20:03)
[2017-12-23] MEDS: MIDODRINE 5 MG TAB PO ×3 (03:56→17:51)
[2017-12-23] MEDS: LEVOTHYROXINE 75MCG TABLET (0.075MG) PO (05:30)
[2017-12-23] MEDS: SLF 3 ML SYR IV ×3 (05:30→21:16)
[2017-12-23 05:36] LABS: HEMATOCRIT 30.2 % (42.0-52.0); HEMOGLOBIN 9.3 g/dl (13.5-17.5); MEAN CORPUSCULAR HEMOGLOBIN 29.1 pg (27.0-33.0); MEAN CORPUSCULAR HGB CONC 30.8 g/dl (32.0-36.5); MEAN CORPUSCULAR VOLUME 94.4 fl (80.0-96.0); PLATELET COUNT, AUTOMATED 174 10^3/uL (150-450); RED CELL DISTRIBUTION WIDTH 15.4 % (11.5-14.5); WHITE BLOOD COUNT 8.3 10^3/uL (4.0-10.0)
[2017-12-23 06:02] LABS: ANION GAP 5 MEQ/L (8-16); BLOOD UREA NITROGEN 16 MG/DL (7-18); CALCIUM LEVEL 8.3 MG/DL (8.8-10.2); CARBON DIOXIDE LEVEL 31 MEQ/L (21-32); CHLORIDE LEVEL 104 MEQ/L (98-107); CREATININE FOR GFR 3.36 MG/DL (0.70-1.30); GLOMERULAR FILTRATION RATE 19.2 (>42); GLUCOSE, FASTING 115 MG/DL (70-100); POTASSIUM SERUM 3.8 MEQ/L (3.5-5.1); SODIUM LEVEL 140 MEQ/L (136-145)
[2017-12-23] MEDS: FEBUXOSTAT 40 MG TABLET (ULORIC) PO (07:57)
[2017-12-23] MEDS: METAMUCIL (PSYLLIUM) PACKET PO (07:57)
[2017-12-23] MEDS: PANTOPRAZOLE 40MG TAB (PROTONIX) PO ×2 (07:57→21:16)
[2017-12-23] MEDS: SERTRALINE 100 MG TAB PO (07:57)
[2017-12-23] MEDS: ACETAMINOPHEN 500 MG TAB PO (17:52)
[2017-12-23] MEDS: EZETIMIBE 10 MG TAB (ZETIA) PO (21:16)
[2017-12-24 05:42] LABS: HEMATOCRIT 29.1 % (42.0-52.0); HEMOGLOBIN 9.1 g/dl (13.5-17.5); MEAN CORPUSCULAR HEMOGLOBIN 29.4 pg (27.0-33.0); MEAN CORPUSCULAR HGB CONC 31.3 g/dl (32.0-36.5); MEAN CORPUSCULAR VOLUME 93.9 fl (80.0-96.0); PLATELET COUNT, AUTOMATED 176 10^3/uL (150-450); RED CELL DISTRIBUTION WIDTH 15.2 % (11.5-14.5); WHITE BLOOD COUNT 7.4 10^3/uL (4.0-10.0)
[2017-12-24] MEDS: SLF 3 ML SYR IV (06:00)
[2017-12-24] MEDS: LEVOTHYROXINE 75MCG TABLET (0.075MG) PO (06:00)
[2017-12-24 06:05] LABS: ANION GAP 8 MEQ/L (8-16); BLOOD UREA NITROGEN 25 MG/DL (7-18); CARBON DIOXIDE LEVEL 29 MEQ/L (21-32); CHLORIDE LEVEL 104 MEQ/L (98-107); CREATININE FOR GFR 4.41 MG/DL (0.70-1.30); GLUCOSE, FASTING 105 MG/DL (70-100); POTASSIUM SERUM 4.3 MEQ/L (3.5-5.1); SODIUM LEVEL 141 MEQ/L (136-145)
[2017-12-24] MEDS: MIDODRINE 5 MG TAB PO (07:29)
[2017-12-24] MEDS: FEBUXOSTAT 40 MG TABLET (ULORIC) PO (08:34)
[2017-12-24] MEDS: METAMUCIL (PSYLLIUM) PACKET PO (08:34)
[2017-12-24] MEDS: SERTRALINE 100 MG TAB PO (08:34)
[2017-12-24] MEDS: PANTOPRAZOLE 40MG TAB (PROTONIX) PO (08:34)
== END 2017-12-24 13:26 | DRG 291 ==
LOC: M ED 14:54 → M ED INP 22:55 → M PCU 23:51
PROC: 30233J1 Transfusion of Nonautologous Serum Albumin into Peripheral Vein, Percutaneous Approach (ICD-10-PCS; principal; 2017-12-20)
PROC: 5A1D70Z Performance of Urinary Filtration, Intermittent, Less than 6 Hours Per Day (ICD-10-PCS; 2017-12-20)
DX: I13.2 Hypertensive heart and chronic kidney disease with heart failure and with stage 5 chronic kidney disease, or end stage renal disease (principal); I50.23 Acute on chronic systolic (congestive) heart failure; N18.6 End stage renal disease; K74.60 Unspecified cirrhosis of liver; I25.5 Ischemic cardiomyopathy; G47.33 Obstructive sleep apnea (adult) (pediatric); E03.9 Hypothyroidism, unspecified; R19.7 Diarrhea, unspecified; E87.6 Hypokalemia; I48.0 Paroxysmal atrial fibrillation; I95.89 Other hypotension; F32.9 Major depressive disorder, single episode, unspecified; M10.30 Gout due to renal impairment, unspecified site; D50.0 Iron deficiency anemia secondary to blood loss (chronic); D63.1 Anemia in chronic kidney disease; Z79.899 Other long term (current) drug therapy; Z88.8 Allergy status to other drugs, medicaments and biological substances; Z95.1 Presence of aortocoronary bypass graft; Z95.810 Presence of automatic (implantable) cardiac defibrillator; Z99.2 Dependence on renal dialysis; Z91.048 Other nonmedicinal substance allergy status

== ENCOUNTER → 2017-12-28 | Outpatient (CLI) | payer MEDICARE ==
[2017-12-28 10:10] LABS: TYPE AND SCREEN 1
== END ==
LOC: M RADPRO 09:55
DX: N18.6 End stage renal disease (principal); I50.9 Heart failure, unspecified; R18.8 Other ascites; Z79.899 Other long term (current) drug therapy; Z91.048 Other nonmedicinal substance allergy status; Z88.8 Allergy status to other drugs, medicaments and biological substances
CPT/HCPCS: 49083

== ENCOUNTER → 2018-01-01 | Outpatient (REF) ==
[2018-01-01 09:56] LABS: HEMATOCRIT 33.4 % (42.0-52.0); HEMOGLOBIN 10.7 g/dl (13.5-17.5); MEAN CORPUSCULAR HEMOGLOBIN 29.2 pg (27.0-33.0); MEAN CORPUSCULAR VOLUME 91.3 fl (80.0-96.0); PLATELET COUNT, AUTOMATED 317 10^3/uL (150-450); RED BLOOD COUNT 3.66 10^6/uL (4.30-6.10); RED CELL DISTRIBUTION WIDTH 16.5 % (11.5-14.5); WHITE BLOOD COUNT 7.2 10^3/uL (4.0-10.0)
[2018-01-01 10:16] LABS: AMMONIA 67 uMOL/L (<32)
[2018-01-01 10:26] LABS: ANION GAP 11 MEQ/L (8-16); BLOOD UREA NITROGEN 55 MG/DL (7-18); CALCIUM LEVEL 8.1 MG/DL (8.8-10.2); CARBON DIOXIDE LEVEL 25 MEQ/L (21-32); CHLORIDE LEVEL 101 MEQ/L (98-107); CREATININE FOR GFR 4.58 MG/DL (0.70-1.30); GLOMERULAR FILTRATION RATE 13.4 (>42); GLUCOSE, FASTING 81 MG/DL (70-100); POTASSIUM SERUM 3.7 MEQ/L (3.5-5.1); SODIUM LEVEL 137 MEQ/L (136-145)
== END ==
DX: N18.6 End stage renal disease (principal)

== ENCOUNTER → 2018-01-11 | Outpatient (CLI) | payer MEDICARE ==
[2018-01-11 10:09] LABS: TYPE AND SCREEN 1
== END ==
LOC: M RADPRO 09:48
DX: R18.8 Other ascites (principal); I50.9 Heart failure, unspecified; N18.6 End stage renal disease; Z79.899 Other long term (current) drug therapy; Z91.048 Other nonmedicinal substance allergy status